=== PATIENT | male | born 1945 | race Caucasian/White ===

== ENCOUNTER 2017-06-18 00:42 | Inpatient (IN) | payer MEDICARE, OTHER ==
[2017-06-18] MEDS ORDERED: Ondansetron HCl/PF 4 MG/2 ML Vial IVP PRN (02:42)
[2017-06-18] MEDS ORDERED: HYDROcodone/Acetaminophen 5/325 mg Tablet PO PRN (02:42)
[2017-06-18] MEDS ORDERED: Acetaminophen 325 MG TAB PO PRN (02:42)
--- NOTE | 2017-06-18 02:52 | PDOC.EVN ---
Event Note - Event Note Event Note: h&p dictated [id number] 1. Dehydration 2. htn 3. h/o sarcoma plan: see orders
[2017-06-18 04:02] LABS: Anion Gap 15 mmol/L (10-20); BUN (Urea Nitrogen) 28 mg/dL (8.4-25.7); Calc. Creatinine Clearance 0 mL/min (70-130); Calcium 7.9 mg/dL (7.8-10.44); Carbon Dioxide 21 mmol/L (23-31); Chloride 100 mmol/L (98-107); Estimated GFR-MDRD 68
[2017-06-18 04:03] LABS: Band 4 % (5-11); Hematocrit 31.9 % (42.0-52.0); Neutrophil 9 % (42-75); Reactive Lymphocytes 1 % (0-10); Red Blood Cell (RBC) Count 3.49 mill/uL (4.70-6.10); White Blood Cell (WBC) Count 1.6 thou/uL (4.8-10.8)
[2017-06-18] MEDS: Sodium Chloride 0.9% 1,000 ML IV SCH ×2 (04:22→16:36)
[2017-06-18] MEDS ORDERED: Calcium Carbonate 500 MG ChewTAB PO PRN (06:31)
[2017-06-18] MEDS ORDERED: Bisacodyl 10 MG SUPP PR PRN (06:31)
[2017-06-18] MEDS ORDERED: Senokot 8.6 MG TAB PO PRN (06:31)
[2017-06-18 07:54] LABS: Magnesium 1.6 mg/dL (1.6-2.6); Phosphorus 3.3 mg/dL (2.3-4.7)
[2017-06-18] MEDS ORDERED: Famotidine/PF 20 mg/2ml Vial SLOW IVP SCH (09:00)
[2017-06-18] MEDS ORDERED: Heparin 5,000 UNITS/ML VIAL SC SCH (09:00)
[2017-06-18] MEDS: Famotidine 20 MG TAB PO SCH ×2 (09:25→20:31)
[2017-06-18] MEDS ORDERED: Cefepime 2 GM in Sodium Chloride 0.9% 100 ML IVPB SCH (09:30)
[2017-06-18] MEDS ORDERED: metroNIDAZOLE 500 MG in Premix Bag 1 BAG IVPB SCH (10:00)
--- NOTE | 2017-06-18 10:16 | HP ---
DATE OF ADMISSION: 06/18/2017 CHIEF COMPLAINT: Dehydration. HISTORY OF PRESENT ILLNESS: Patient is 72 years old male with past medical history of sarcomatoid malignancy, hypertension. Patient finished chemotherapy last week, and this was second round, now came to the hospital because of weakness. Since the chemotherapy, patient is not eating and drinking well. He has generalized weakness, some nausea, decreased p.o. intake. The patient was extremely weak today, so patient was brought to the ER. Patient denies any fever or chills. Complains of loss of energy, denies any trouble breathing, denies dizziness. Per family, patient did have some episodes of vomiting, vomit is black in color, some black stool also. PAST MEDICAL HISTORY: As per HPI. PAST SURGICAL HISTORY: Mass biopsy done. MEDICATIONS: Reviewed. FAMILY HISTORY: Denies any heart problems. SOCIAL HISTORY: Denies smoking, denies alcohol, denies any drugs. REVIEW OF SYSTEMS: Constitutional: Denies any fever, denies any chills. Eyes : Negative. Ears: Negative. Throat: Negative. Neck: Negative. Cardiovascular system: Negative. Gastrointestinal: Positive for loss of appetite. Positive for nausea. Musculoskeletal: Positive for generalized weakness. Cranial nerve system: Denies syncope. Psychiatric: Denies anxiety. Integument: Denies any rash. All other systems are reviewed and are negative. PHYSICAL EXAMINATION: CONSTITUTIONAL AND VITAL SIGNS: At the time of H and P performed, blood pressure is 130/70, afebrile, respiration rate 18, pulse ox 97% on room air. GENERAL: The patient appears tired. HEENT: Anterior nares patent. Nose normal. Ears normal. Teeth intact. Tongue is moist. NECK: Supple, no JVD. CARDIOVASCULAR SYSTEM: S1, S2 present. Regular rate and rhythm. No murmurs, no rubs, no gallops. RESPIRATORY SYSTEM: No wheezing, no rhonchi. Breath sounds present bilaterally. GASTROINTESTINAL: Abdomen is soft, nontender, no guarding, no organomegaly, no masses felt. PSYCHIATRIC: Mood is appropriate at this time. INTEGUMENTARY: No rashes seen. GENITOURINARY: No suprapubic tenderness. No inguinal tenderness. MUSCULOSKELETAL: No edema. CRANIAL NERVE SYSTEM: Awake, follows command. Strength intact, sensory intact. LABORATORY DATA: At the time of H and P performed, sodium 132, potassium 4.4, chloride 97, CO2 is 20, BUN of 30, creatinine of 1.43. White count 5.9, hemoglobin 12.4, platelet count is 125. ASSESSMENT AND PLAN: The patient is 72 years old male: 1. Dehydration, hypovolemia. Plan to admit patient to the hospital. We will monitor the patient closely. Start IV fluids, repeat BMP in a.m. 2. History of hypertension. Hold blood pressure medications. We will do p.r.n. hydralazine. 3. History of sarcoma. Plan to consult Hem/Onc to evaluate the patient. Case was discussed in detail with the patient. Patient is FULL CODE. MTDD
[2017-06-18 11:22] LABS: Bilirubin Moderate (Negative); Blood, Urine Large (Negative); Glucose, Urine (Dipstick) Negative (Negative); Ketone, Urine Trace mg/dL (Negative); Nitrite Positive (Negative); Protein, Urine (Dipstick) 30 mg/dL (Neg-Trace)
[2017-06-18 11:25] LABS: Bacteria/HPF None Seen HPF (None Seen); Hyaline Casts/LPF 4-6 HYALINE CAST LPF (0-3 Hyaline); Squamous Epithelial None Seen HPF (0-3); WBC/HPF 0-3 HPF (0-3)
[2017-06-18] MEDS: Cefepime 2 GM in Sodium Chloride 0.9% 100 ML IVPB SCH ×2 (11:31→20:23)
--- NOTE | 2017-06-18 12:00 | RAD ---
KUB AND UPRIGHT: HISTORY: Abdominal pain. FINDINGS: The bowel gas pattern is nonobstructed. No free air demonstrated. No renal calculi are seen. Ther e are marked arthritic changes of the spine. IMPRESSION: No acute changes. POS: [id number]
--- NOTE | 2017-06-18 12:25 | CON ---
DATE OF CONSULTATION: 06/18/2017 REASON FOR CONSULTATION: Stage 4 sarcoma. HISTORY OF PRESENT ILLNESS: Mr. Manriquez is a pleasant 72-year-old gentleman who was recently diagnosed with stage IV, high grade sarcomatoid malignancy. He originally presented in April with right flank pain and mass. Scans showed a large mass in his right flank, left upper quadrant and right lower quadrant. Path revealed sarcomatoid malignancy. He was offered chemoradiation, but he did not want to come daily for radiation. He also declined to go to a sarcoma specialist. He is undergoing treatment with Gemzar and Taxotere. He completed cycle 1 on 06/10/2017. Over the last few days, he has had increased weakness, poor appetite, and progressive difficulty urinating. He presented to [facility] for evaluation. He was found with an elevated creatinine, felt to be dehydrated and was sent to this facility for further treatment. He has been started on IV fluids. Labs showed a BUN of 30 and a creatinine of 1.43. He did have a total bilirubin of 4.2 with an AST of 62, an abdominal x-ray has been ordered to rule out biliary obstruction as he does have a mass in that area. Overnight, his creatinine has improved; however, he has been unable to void over the past several hours. A Hayward catheter was placed with 875 mg of dark urine initial output. He denies any chest pain or shortness of breath. No nausea, vomiting, no diarrhea or constipation. PAST MEDICAL HISTORY: 1. 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 2. Hypertension. 3. [place] with exposure to Agent [place]. PAST SURGICAL HISTORY: Appendectomy. ALLERGIES: No known drug allergies. HOME MEDICATIONS: 1. Lisinopril/hydrochlorothiazide daily. 2. Verapamil 240 mg daily. 3. Aspirin 81 mg daily. FAMILY HISTORY: Noncontributory. SOCIAL HISTORY: He is , has 2 children, [place] alone [place] the [place] outside of [place], a former smoker, social drinker. No illicit drug use. REVIEW OF SYSTEMS: CONSTITUTIONAL: No fever, chills, night sweats, recent weight loss or gain. EYES: No blurred or double vision. ENT: No pain, hoarseness, sore throat, or dysphagia. CARDIOVASCULAR: No chest pain, palpitations or syncope. RESPIRATORY: No shortness breath, dyspnea on exertion or cough. GASTROINTESTINAL: Positive for occasional nausea. Poor appetite and right upper quadrant abdominal pain. GENITOURINARY: Positive for dysuria. MUSCULOSKELETAL: Positive for back pain. SKIN: No rash or pruritus. HEMATOLOGIC: No bleeding, bruising or clotting. NEUROLOGIC: Positive for weakness, no headache, numbness, tingling or seizure activity. PSYCHIATRIC: No anxiety or depression. PHYSICAL EXAMINATION: VITAL SIGNS: Temperature is 97.9, pulse is 87, respiratory rate 18, BP is 140/ 79. He is 92% on room air. GENERAL: Well-developed, well-nourished male in no acute distress. HEENT: Normocephalic, atraumatic. Pupils equal and reactive to light. NECK: Supple. CARDIOVASCULAR: Regular rate and rhythm. LUNGS: Clear. ABDOMEN: Distended. He has mild tenderness to palpation in the right upper quadrant. Bowel sounds are positive. EXTREMITIES: No clubbing, cyanosis or edema. SKIN: He has redness to his face from sun exposed areas, likely from Taxotere. HEMATOLOGIC: No petechia or purpura. NEUROLOGICAL: Nonfocal. PSYCHIATRIC: The patient is alert and oriented and appropriate. PERTINENT LABORATORY AND X-RAYS: Current WBCs are 1.6, hemoglobin 10.7, hematocrit 31.9, platelet count 85,000. He has got 9% neutrophils, 4% bands, 61 % lymphocytes, 24% monocytes. Sodium is 132, potassium 4.1, chloride 100, CO2 is 21, BUN is 28, creatinine 1.07, calcium 7.9, phosphorus 2.3, magnesium 1.6, total bilirubin is 4.2, AST 62, ALT 54, alkaline phosphatase is 110. Serum total protein is 5.5, albumin 2.8, globulin 2.7. Urine showed large amount of blood and bilirubin, no bacteria. Chest x-ray showed no acute process. IMPRESSION: 1. Stage IV sarcoma status post chemotherapy. 2. Dehydration secondary to #1. 3. Hyperbilirubinemia worrisome for obstruction. DISCUSSION: The patient has had an abdominal ultrasound, results are currently pending. He has had a Hayward placed. Etiology of his dysuria is unknown. He is slowly reaching his edwige so I expect his white count to continue to drop over the next day or two and then should improve. I would continue IV fluids. The patient is on cefepime and Flagyl, continue for the next 48 hours. Thank you for the consult. We will follow him closely. MATILDA
[2017-06-18] MEDS: metroNIDAZOLE 500 MG in Premix Bag 1 BAG IVPB SCH ×2 (12:37→21:10)
--- NOTE | 2017-06-18 13:17 | ULT ---
RIGHT UPPER QUADRANT ULTRASOUND: HISTORY: Abnormal LFTs. FINDINGS: The liver demonstrates homogeneous echotexture without focal mass or intrahepatic ductal dilatation. There is a shadowing gallstone in the neck of the gallbladder without gallbladder wall thickening or pericholecystic fluid. The common duct measures 4 mm in diameter. The pancreas is not well visu alized. No free fluid is seen in the Morison's pouch. There is a 2.2 cm cyst in the right kidney. No right-sided hydronephrosis is seen. There is a solid mass adjacent to the superomedial aspect of the right kidney which is better visual ized and evaluated on the CT scan of 05/11/17. IMPRESSION: 1. Cholelithiasis. 2. Right renal cyst. 3. Solid mass in the right upper quadrant. Please see CT of 05/11/17. POS: LINDA
[2017-06-18] MEDS: traMADol HCl 50 MG TAB PO PRN (16:58)
[2017-06-19] MEDS: Cefepime 2 GM in Sodium Chloride 0.9% 100 ML IVPB SCH ×3 (03:42→20:10)
[2017-06-19] MEDS: Sodium Chloride 0.9% 1,000 ML IV SCH ×3 (03:42→19:01)
[2017-06-19 06:05] LABS: Prothrombin Time 17.7 SEC (12.0-14.7)
[2017-06-19 06:23] LABS: ALT (SGPT) 39 U/L (8-55); AST (SGOT) 36 U/L (5-34); Alkaline Phosphatase 94 U/L (40-150); Bilirubin, Direct 1.3 mg/dL (0.1-0.3); Bilirubin, Total 1.7 mg/dL (0.2-1.2); Protein, Total 5.2 g/dL (5.8-8.1)
[2017-06-19 06:42] LABS: Anion Gap 13 mmol/L (10-20); BUN (Urea Nitrogen) 22 mg/dL (8.4-25.7); BUN/Creatinine Ratio 32.84; Calc. Creatinine Clearance 152 mL/min (70-130); Calcium 7.5 mg/dL (7.8-10.44); Carbon Dioxide 20 mmol/L (23-31); Chloride 104 mmol/L (98-107); Estimated GFR-MDRD Greater than 90; Phosphorus 1.6 mg/dL (2.3-4.7)
[2017-06-19 06:44] LABS: Band 7 % (5-11); Crenated RBC SLIGHT = 1-5 cells (100X) (None Seen); Mean Platelet Volume 10.6 fL (7.4-10.4); Myelocyte 1 % (0-0); Neutrophil 39 % (42-75); Red Blood Cell (RBC) Count 3.67 mill/uL (4.70-6.10); White Blood Cell (WBC) Count 5.3 thou/uL (4.8-10.8)
[2017-06-19] MEDS: metroNIDAZOLE 500 MG in Premix Bag 1 BAG IVPB SCH ×3 (07:18→21:25)
--- NOTE | 2017-06-19 08:45 | PRG ---
DATE OF SERVICE: 06/19/2017 SUMMARY: A 72-year-old male with stage IV sarcoma, currently on chemotherapy and hypertension who presented to the hospital with generalized weakness. He lost his appetite and had some abdominal discomfort. His workup in the emergency room showed elevated LFTs with acute kidney injury. Repeat labs in the morning showed neutropenia with WBC of 1.6, neutrophils of 9% with 4% bandemia. SUBJECTIVE: The patient had some diarrhea earlier today. He had urinary retention for which a Hayward catheter has been placed. Abdominal discomfort has improved after Hayward catheter. Overall, he feels better. He denies any chest pain, shortness of breath, palpitations, fever, chills or jaundice. REVIEW OF SYSTEMS: As discussed above. No new focal deficit, syncope or palpitations. CURRENT MEDICATIONS: The patient is currently on cefepime, Pepcid, IV NS 800 an hour, Flagyl with p.r.n. medications. PHYSICAL EXAMINATION: VITAL SIGNS: Temperature 98.1, respirations 20, pulse of 78, blood pressure 138 /66 with O2 saturation 98% on room air. Intake of 1680, output of 2175. Patient has indwelling Hayward catheter. GENERAL: A 72-year-old male in no apparent distress. Abdominal discomfort has improved. HEENT: Head atraumatic, normocephalic. Sclerae anicteric. Moist mucous membranes. No oral lesion. LUNGS: Clear to auscultation bilaterally. No wheezing, rales or rhonchi. HEART: S1, S2 present. Regular rate and rhythm. No rubs, gallops or murmurs appreciated. ABDOMEN: Soft, nontender, bowel sounds present, no rebound or guarding. No costovertebral angle tenderness. EXTREMITIES: No edema or calf tenderness. NEUROLOGIC: Grossly nonfocal, moves all 4 extremities. Power was 5/5 in all extremities. [id number] test was normal. Sensation to touch was normal bilaterally. PSYCHIATRIC: Alert, awake, oriented x3. LABORATORY DATA AND IMAGING: WBC is up to 5.3 from 1.6 with 39% neutrophils. INR of 1.4. Total bilirubin today is 1.7 from 4.2, AST has improved to 36 from 62, albumin 2.4, creatinine 0.67 with BUN 22. Urinalysis on admission showed 0- 3 wbc's with no bacteria. It showed hyaline cast, nitrite positive. Blood cultures and urine cultures are pending at this time. Abdominal ultrasound showed cholelithiasis with right renal cyst and a solid mass in the right upper quadrant. KUB by my review showed nonspecific bowel gas pattern. There was no free air. IMPRESSION: 1. Sepsis with acute organ dysfunction. 2. Neutropenia, probably secondary to chemotherapy/sepsis. 3. Acute kidney injury secondary to dehydration. 4. Abnormal liver function tests of unclear etiology. His abdominal ultrasound was consistent with cholelithiasis with common bile duct at 4 mm. 5. Urinary retention status post Hayward catheter placement. 6. Moderate protein calorie malnutrition. 7. Pancytopenia, probably secondary to chemotherapy. 8. Coagulopathy, probably secondary to nutritional deficiencies. 9. Hypertension. 10. Diarrhea, rule out infectious etiology. 11. Right renal cyst. 12. History of stage IV sarcoma, currently on chemotherapy. 13. Dehydration on admission, improved. 14. History of lung mass followed by Pulmonary. 15. History of alcohol abuse. 16. Hypophosphatemia. Plan of care was discussed with the patient. He stated understanding. PLAN: The patient will continue IV cefepime and Flagyl with IV fluids. Stool workup has been pending. We will continue Hayward catheter today. Oncology team is following. We will repeat labs in a.m. We will encourage activity. Physical therapy has been consulted. We will resume home dose of aspirin. If platelet counts improve, we will consider starting Lovenox tomorrow. We will replace phosphorus. His phosphorus today was 1.6. Try Flomax tonight. MTDD
[2017-06-19] MEDS: Multivit, Therapeutic 1 TAB PO SCH (09:29)
[2017-06-19] MEDS: Folic Acid 1 MG TAB PO SCH (09:29)
[2017-06-19] MEDS: Cyanocobalamin (Vitamin B-12) 1,000 MCG TAB PO SCH (09:29)
[2017-06-19] MEDS: K-Phos Neutral 250 MG TAB PO SCH ×4 (09:29→21:23)
[2017-06-19] MEDS: Famotidine 20 MG TAB PO SCH ×2 (09:29→21:25)
[2017-06-19] MEDS: traMADol HCl 50 MG TAB PO PRN (09:38)
--- NOTE | 2017-06-19 11:26 | PDOC.EVN ---
Event Note - Event Note Event Note: Stool w/u positive for Cryptosporidium. Will add Alinia/consult ID.
[2017-06-19] MEDS ORDERED: Cepastat Lozenges 1 LOZ PO PRN (17:04)
[2017-06-19] MEDS ORDERED: Chloraseptic Spray 180 ml Bottle PO PRN (17:04)
[2017-06-19] MEDS: Calcium Carbonate + Vit D 1 TAB PO SCH (17:49)
[2017-06-19] MEDS ORDERED: Tamsulosin HCl 0.4 MG CAP PO SCH (21:00)
[2017-06-20] MEDS: Cefepime 2 GM in Sodium Chloride 0.9% 100 ML IVPB SCH ×2 (04:00→12:16)
[2017-06-20 04:33] LABS: ALT (SGPT) 31 U/L (8-55); AST (SGOT) 32 U/L (5-34); Alkaline Phosphatase 93 U/L (40-150); Anion Gap 11 mmol/L (10-20); BUN (Urea Nitrogen) 18 mg/dL (8.4-25.7); BUN/Creatinine Ratio 32.14; Band 15 % (5-11); Bilirubin, Direct 0.7 mg/dL (0.1-0.3); Bilirubin, Total 1.1 mg/dL (0.2-1.2); Calc. Creatinine Clearance 182 mL/min (70-130); Carbon Dioxide 22 mmol/L (23-31); Chloride 106 mmol/L (98-107); Estimated GFR-MDRD Greater than 90; Hematocrit 33.2 % (42.0-52.0); Magnesium 1.9 mg/dL (1.6-2.6); Metamyelocyte 3 % (0-0); Myelocyte 8 % (0-0); Neutrophil 52 % (42-75); Nucleated RBC 2 % (0); Protein, Total 4.8 g/dL (5.8-8.1); Red Blood Cell (RBC) Count 3.61 mill/uL (4.70-6.10); Toxic Granulation SLIGHT; White Blood Cell (WBC) Count 8.2 thou/uL (4.8-10.8)
[2017-06-20 04:38] LABS: Phosphorus 1.8 mg/dL (2.3-4.7)
[2017-06-20] MEDS: metroNIDAZOLE 500 MG in Premix Bag 1 BAG IVPB SCH (05:11)
[2017-06-20] MEDS: Sodium Chloride 0.9% 1,000 ML IV SCH ×3 (06:24→15:38)
[2017-06-20] MEDS ORDERED: Nitroglycerin 0.4 MG TAB (25 Tab Bottle) PO PRN (07:37)
[2017-06-20 08:27] LABS: Troponin I Less than 0.010 ng/mL (< 0.028)
[2017-06-20] MEDS: K-Phos Neutral 250 MG TAB PO SCH ×4 (08:56→21:00)
[2017-06-20] MEDS: Calcium Carbonate + Vit D 1 TAB PO SCH ×2 (08:56→17:49)
[2017-06-20] MEDS: Cyanocobalamin (Vitamin B-12) 1,000 MCG TAB PO SCH (08:57)
[2017-06-20] MEDS: Famotidine 20 MG TAB PO SCH ×2 (08:57→21:01)
[2017-06-20] MEDS: Folic Acid 1 MG TAB PO SCH (08:58)
[2017-06-20] MEDS: Multivit, Therapeutic 1 TAB PO SCH (08:58)
[2017-06-20] MEDS: Aspirin 81 mg Enteric Coated Tablet PO SCH (08:59)
[2017-06-20] MEDS ORDERED: Aspirin 325 MG TAB PO SCH (09:00)
[2017-06-20] MEDS ORDERED: Digoxin 0.5 MG/2 ML AMP ONE ×2 (10:54→16:56)
[2017-06-20] MEDS: Digoxin 0.5 MG/2 ML AMP SLOW IVP SCH ×2 (10:59→17:03)
[2017-06-20 11:04] LABS: Troponin I Less than 0.010 ng/mL (< 0.028)
--- NOTE | 2017-06-20 12:48 | PDOC.PN ---
- Subjective Encounter Start Date: 06/20/17 Encounter Start Time: 12:46 Patient seen and examined. Transferred to [facility] due to Afib with RVR earlier today. No overnight events - Objective MAR Reviewed: Yes Vital Signs & Weight: Vital Signs (12 hours) Temp Pulse Resp BP BP BP Pulse Ox 06/20/17 12:32 98 F 48 L 18 162/73 H 06/20/17 11:03 131 H 06/20/17 10:59 131 H 06/20/17 08:57 129 H 132/66 06/20/17 08:20 96.4 F L 114 H 20 100/61 96 06/20/17 07:58 96.4 F L 155 H 20 114/65 94 L 06/20/17 04:00 98.0 F 76 18 113/56 L 96 Weight Admit Weight 231 lb 0.711 oz Weight 231 lb 0.711 oz I&O: 06/19/17 06/20/17 06/21/17 06:59 06:59 06:59 Intake Total 1680 3320 Output Total 2175 1350 Balance -495 1970 Result Diagrams: 06/20/17 03:22 06/20/17 03:22 EKG Reviewed by me: Yes (Afib/RVR) Phys Exam - Physical Examination Constitutional: NAD Respiratory: no wheezing, no rales, no rhonchi, clear to auscultation bilateral Cardiovascular: no rub, irregular no heaves/pulsations Gastrointestinal: soft, no distention, positive bowel sounds mild gen tenderness Musculoskeletal: no edema Neurological: non-focal, normal sensation, moves all 4 limbs Psychiatric: normal affect, A&O x 3 Dx/Plan - Plan cont current plan of care, DVT proph w/SCDs IMPRESSION: 1. Sepsis with acute organ dysfunction due to Cryptosporidial gastroenteritis 2. Atrial fibrillation with RVR 3. Acute kidney injury secondary to dehydration. improving 4. Abnormal liver function tests of unclear etiology. improving 5. Urinary retention status post Hayward catheter placement. 6. Moderate protein calorie malnutrition. 7. Pancytopenia, probably secondary to chemotherapy. 8. Coagulopathy, probably secondary to nutritional deficiencies. 9. Hypertension. 10. Diarrhea, rule out infectious etiology. 11. Right renal cyst. 12. History of stage IV sarcoma, currently on chemotherapy. 13. Dehydration on admission, improving 14. History of lung mass followed by Pulmonary. 15. History of alcohol abuse. 16. Hypophosphatemia. 17 Cholelithiasis 18. Neutropenia improving PLAN: * Cardizem bolus given. * Cont Digoxin loading * Cardio consult * Echo * Cardizem drip * DC Flagyl * Cont Cefepime and Alinia * AM labs * Tele monitoring * Replace electrolytes * Await ID input * Add low dose ASA * Start Lovenox at low dose since platelets are normal Review of Systems - Review of Systems Constitutional: negative: Fever, Chills, Sweats, Weakness, Malaise, Other Respiratory: negative: Cough, Dry, Shortness of Breath, Hemoptysis, SOB with Excertion, Pleuritic Pain, Sputum, Wheezing Gastrointestinal: Nausea, Diarrhea. negative: Vomiting, Abdominal Pain, Constipation, Melena, Hematochezia, Other - Medications/Allergies Allergies/Adverse Reactions: Allergies Allergy/AdvReac Type Severity Reaction Status Date / Time No Known Drug Allergies Allergy Verified 05/11/17 21:29 Medications: Current Medications Aspirin (Ecotrin) 81 mg PO DAILY [facility] Last Admin: 06/20/17 08:59 Dose: 81 mg Bisacodyl (Dulcolax) 10 mg CO Q24H PRN PRN Reason: Constipation Calcium Carbonate (Tums) 1,000 mg PO Q4H PRN PRN Reason: Heartburn or Indigestion Calcium/Vitamin D (Caltrate 600 + Vit D) 1 tab PO BID-[facility] Last Admin: 06/20/17 08:56 Dose: Not Given Digoxin (Lanoxin) 0.25 mg SLOW IVP Q6H [facility] Stop: 06/20/17 22:01 Last Admin: 06/20/17 10:59 Dose: 0.25 mg Digoxin (Lanoxin) 0.125 mg PO DAILY [facility] Diltiazem HCl (Cardizem) 30 mg PO Q6H PRN PRN Reason: HR >120 sustained Diltiazem HCl (Cardizem Cd) 120 mg PO DAILY [facility] Last Admin: 06/20/17 08:57 Dose: 120 mg Famotidine (Pepcid) 20 mg PO BID [facility] Last Admin: 06/20/17 08:57 Dose: 20 mg Folic Acid (Folvite) 1 mg PO DAILY [facility] Last Admin: 06/20/17 08:58 Dose: Not Given Cefepime HCl 2 gm/ Sodium (Chloride) 100 mls @ 200 mls/hr IVPB Q8H [facility] Last Admin: 06/20/17 12:16 Dose: 100 mls Diltiazem HCl 125 mg/ Sodium (Chloride) 125 mls @ 5 mls/hr IVPB INF DAINA; 5 MG/ HR PRN Reason: Protocol Last Admin: 06/20/17 09:22 Dose: 125 mls Sodium Chloride (Normal Saline 0.9%) 1,000 mls @ 125 mls/hr IV .Q8H [facility] Last Admin: 06/20/17 08:57 Dose: Not Given Miscellaneous Medication (Pharmacy To Dose) 1 each IVPB ASDIR DAINA Multivitamins (Theragran) 1 tab PO DAILY [facility] Last Admin: 06/20/17 08:58 Dose: Not Given Nitazoxanide (Alinia) 500 mg PO BID [facility] Last Admin: 06/20/17 11:02 Dose: 500 mg Nitroglycerin (Nitrostat) 0.4 mg PO Q5MIN PRN PRN Reason: Chest Pain Ondansetron HCl (Zofran) 4 mg IVP Q6H PRN PRN Reason: Nausea/Vomiting Phenol (Chloraseptic [place] 180 Ml Bot) 0 ml PO BIDPRN PRN PRN Reason: Sore Throat Last Admin: 06/19/17 19:02 Dose: 1 spr Phosphorus (Kphos Neutral) 500 mg PO QID-WM [facility] Last Admin: 06/20/17 12:15 Dose: 500 mg Senna (Senokot) 2 tab PO HSPRN PRN PRN Reason: Constipation Sodium Chloride (Flush - Normal Saline) 10 ml IVF Q12HR [facility] Last Admin: 06/20/17 11:02 Dose: 10 ml Sodium Chloride (Flush - Normal Saline) 10 ml IVF PRN PRN PRN Reason: Saline Flush Tamsulosin HCl (Flomax) 0.4 mg PO HS [facility] Last Admin: 06/19/17 21:25 Dose: 0.4 mg Thiamine HCl (Thiamine) 100 mg PO DAILY [facility] Last Admin: 06/20/17 08:58 Dose: Not Given Throat Lozenges (Cepastat Lozenges) 1 navjot PO Q2H PRN PRN Reason: Sore Throat Last Admin: 06/19/17 19:02 Dose: 1 navjot Tramadol HCl (Ultram) 50 mg PO Q6H PRN PRN Reason: Moderate Pain (4-6) Last Admin: 06/19/17 09:38 Dose: 50 mg
--- NOTE | 2017-06-20 19:51 | CON ---
DATE OF CONSULTATION: 06/20/2017 REASON FOR CONSULTATION: Diarrhea. HISTORY OF PRESENT ILLNESS: A 72-year-old patient who has recently been diagnosed with metastatic sarcomatoid malignancy and is currently undergoing chemotherapy and has been admitted with nausea, vomiting and profuse diarrhea, without fever or chills. Initial evaluation demonstrated a BP of 130/70, normal temperature, respiratory rate of 18 and pulse ox of 97%. He appeared chronically ill. Pertinent findings in the physical exam, normal heart and lung examination. Abdomen was diffusely tender. neurologic examination was not remarkable. Initial labs with white cell count of 1.6, total neutrophil count of about 160 monocytosis. INR was 1.4, creatinine 0.67, sodium 133, potassium 3.9 and CO2 of 20. Urinalysis with 0-3 wbc's. Microbiology data with negative two sets of blood cultures and urine culture and stool workup positive only for cryptosporidium in the parasite screen as well as positive lactoferrin test. The patient has been given Alinia, still quite profuse diarrhea since this morning, but vomiting has subsided. No headaches, visual symptoms, sore throat, odynophagia or dysphagia, no cough or sputum production or chest pain, no genitourinary symptoms, no bleeding, no joint symptoms, no neurological symptoms. PAST MEDICAL HISTORY: Metastatic malignancy with the pathology consistent with sarcomatoid malignancy of uncertain line of differentiation. Also, history of hypertension. PAST SURGICAL HISTORY: Otherwise, negative. SOCIAL HISTORY: Never a smoker. Drinks 5-6 beers a day[place] from [place]. Social history is otherwise unremarkable. CURRENT MEDICATIONS: Dulcolax, Tums, cefepime, Lanoxin, Cardizem, Lovenox, Folvite and Alinia. PHYSICAL EXAMINATION: VITAL SIGNS: With a T-max of 98.6, blood pressure 160/73, pulse 48, respirations 18 and O2 sat 96% on room air. SKIN: No areas of skin breakdown. Peripheral IV access. No Hayward catheter. No lymphadenopathy. HEENT: Ocular movements are conjugate. Sclerae are white. Oral cavity is moist, still with few teeth in place with extensive decay and gum disease. NECK: Supple. No jugular distention. LUNGS: With symmetric air entry without crackles or wheezing. HEART: S1 and S2, irregular rate. ABDOMEN: Soft with mild tenderness, diffusely distributed, no distention. Bowel sounds are increased. Suprapubic area without any evidence of bladder distention. Osteoarthrosis, mild to moderate. No edema. EXTREMITIES: Pulses are 1+ in dorsalis pedis. Moves all extremities equally. Plantar responses are flexor. No clonus. Cognitive function appears to be intact. LATEST LABORATORY DATA: White cell count up to 8.2. Total neutrophil count is well above 4000 and creatinine is 0.56. Liver profile with a bilirubin down from 1.3 to 0.7. IMAGING STUDIES: Include abdomen ultrasound with cholelithiasis, but no evidence of inflammatory changes and a solid mass in the right upper quadrant. He had an abdomen x-ray from admission, no acute changes. Brain MRI from last admission with no evidence of metastatic disease and chest, abdomen and pelvis with mass in the left upper lobe, mass in the right hilum and nodule in the right upper lobe and the soft tissue masses in the upper abdomen, superior right kidney, retroperitoneal area both right and left side in the flank region , iliac region. ASSESSMENT: 1. Metastatic sarcomatoid malignancy, on chemotherapy. 2. Well water associated Cryptosporidiosis, quite severe presentation. 3. Neutropenia, which has resolved. DISCUSSION: At this point, I recommend discontinuation of cefepime, continue Alinia until there is resolution of diarrhea. No evidence of extraintestinal dissemination of the cryptosporidiosis at this point in time. The patient will need to filter his well water and have it rechecked and reassess that the filter he is using for the treatment. Should remain on contact precautions during the hospital stay. MTDD
--- NOTE | 2017-06-20 20:06 | CON ---
DATE OF CONSULTATION: 06/20/2017 REFERRING PHYSICIAN: Henrique Bruce M.D. REASON FOR CONSULTATION: New onset atrial fibrillation with rapid ventricular response. HISTORY OF PRESENT ILLNESS: Mr. 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 He is on chemotherapy and has had some abdominal discomfort, [place], and diarrhea recently. He was admitted on 06/18/2017 complaining of loss of energy, nausea and vomiting. He has had some resultant renal insufficiency and liver enzyme elevations since his chem otherapeutic completion on 06/10/2017. He was transferred to the telemetry unit from [facility] today due to new onset atrial fibrillation with rapid ventricular response. He has been treated with Cardizem and digoxin with good rate control thus far. PAST MEDICAL HISTORY: 1. 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 There is a large right flank mass. 2. Hypertension. 3. Agent [place] exposure in [place]. PAST SURGICAL HISTORY: Appendectomy. ALLERGIES: No known drug allergies. SOCIAL HISTORY: He is . He has 2 children. He is a former smoker. Does not use illicit dr ugs or alcohol to excess. FAMILY HISTORY: Negative with respect to premature atherosclerosis. CURRENT MEDICATIONS: 1. Lisinopril/hydrochlorothiazide daily. 2. Verapamil 240 mg daily. 3. Aspirin 81 mg daily. REVIEW OF SYSTEMS: As per the history of present illness. Remainder of 12-system review is negativ e. PHYSICAL EXAMINATION: VITAL SIGNS: Blood pressure 162/73, pulse 98 and irregularly irregular, respiratory rate 18 and non labored, temperature 98.0, oxygen saturations 96% on room air. GENERAL: This is a well-developed, well-nourished 72-year-old gentleman in no acute distr ess. He is alert and oriented x4. Answers questions appropriately. HEENT: Head is atraumatic, normocephalic. Pupils are equally round and reactive. Sclerae and conj unctivae are clear. There are no oral lesions. NECK: Supple, no JVD, thyromegaly, carotid bruits. CHEST: Symmetrical inspiration and expiration. HEART: Irregularly irregular with no murmur, S3 or S4. PMI is nondisplaced. Not enlarged. LUNGS: Clear to auscultation in all graham. No adventitious sounds appreciated. ABDOMEN: Soft, nontender, nondistended, without organomegaly. Bowel sounds are present in all 4 qu adrants. No flank bruits auscultated. EXTREMITIES: 2+ pulses noted bilaterally in the upper and lower extremities. Strength 5/5 bilatera lly. No clubbing, cyanosis or edema. NEUROLOGIC: Grossly intact without focal motor deficits appreciated. DATABASE: EKG reveals rapid atrial fibrillation, nonspecific ST changes. LABORATORY DATA: CBC reveals white count of 8, hemoglobin and hematocrit of 10 and 33, platelet cou nt 174,000. Differential white blood cells 15% bands, red cell indices normocytic. Coagulation sadie dies: PT is 17.7, INR 1.4. Chemistries reveal normal electrolytes, BUN and creatinine of 18 and 0. 5. GFR is estimated greater than 90. LFTs within normal limits today. Troponins are normal. ASSESSMENT: 1. New onset atrial fibrillation with rapid ventricular response, now rate controlled on Cardizem. 2. Hypertension, controlled. 3. Stage IV sarcoma. 4. Immunosuppression secondary to chemotherapy. RECOMMENDATIONS: From a cardiac standpoint, he is stable and asymptomatic with controlled ventricul ar rates. Would recommend continued calcium channel charlie therapy with his verapamil and weaning off his Cardizem and adding digoxin orally. We will hold off currently on anticoagulation due to hi s chemotherapy and elevation of his liver function tests and may consider switching to a more specif ic antiarrhythmic drug like Multaq for rhythm control if he does not convert on his own within the n ext 24-48 hours. We will follow along with you and make further recommendations as appropriate. We appreciate the opportunity to participate.
[2017-06-20] MEDS ORDERED: Enoxaparin Sodium 30 MG/0.3 ML SYRINGE SC SCH (21:00)
[2017-06-20] MEDS: Tamsulosin HCl 0.4 MG CAP PO SCH (21:01)
[2017-06-21] MEDS: Sodium Chloride 0.9% 1,000 ML IV SCH ×4 (00:36→20:54)
[2017-06-21 06:26] LABS: Band 10 % (5-11); Hematocrit 34.7 % (42.0-52.0); Mean Platelet Volume 9.7 fL (7.4-10.4); Metamyelocyte 5 % (0-0); Myelocyte 8 % (0-0); Neutrophil 53 % (42-75); Nucleated RBC 2 % (0); Red Blood Cell (RBC) Count 3.78 mill/uL (4.70-6.10); White Blood Cell (WBC) Count 17.8 thou/uL (4.8-10.8)
[2017-06-21 06:37] LABS: ALT (SGPT) 30 U/L (8-55); AST (SGOT) 44 U/L (5-34); Alkaline Phosphatase 117 U/L (40-150); Anion Gap 11 mmol/L (10-20); BUN (Urea Nitrogen) 14 mg/dL (8.4-25.7); BUN/Creatinine Ratio 26.92; Bilirubin, Direct 0.5 mg/dL (0.1-0.3); Bilirubin, Total 0.9 mg/dL (0.2-1.2); Calc. Creatinine Clearance 198 mL/min (70-130); Calcium 6.8 mg/dL (7.8-10.44); Carbon Dioxide 22 mmol/L (23-31); Chloride 107 mmol/L (98-107); Estimated GFR-MDRD Greater than 90; Magnesium 1.8 mg/dL (1.6-2.6); Protein, Total 4.9 g/dL (5.8-8.1)
[2017-06-21 06:41] LABS: Phosphorus 1.7 mg/dL (2.3-4.7)
[2017-06-21] MEDS ORDERED: Potassium Phosphate 12 MMOL, Admixture Fee 1 EACH in Sodium Chloride 0.9% 100 ML IVPB SCH (08:45)
[2017-06-21] MEDS: Folic Acid 1 MG TAB PO SCH (09:24)
[2017-06-21] MEDS: Aspirin 81 mg Enteric Coated Tablet PO SCH (09:24)
[2017-06-21] MEDS: Famotidine 20 MG TAB PO SCH ×2 (09:24→20:53)
[2017-06-21] MEDS: Multivit, Therapeutic 1 TAB PO SCH (09:25)
[2017-06-21] MEDS: Digoxin 0.125 MG TAB PO SCH (09:25)
[2017-06-21] MEDS: Calcium Carbonate + Vit D 1 TAB PO SCH ×2 (09:25→17:57)
[2017-06-21] MEDS: K-Phos Neutral 250 MG TAB PO SCH ×4 (09:26→20:54)
[2017-06-21] MEDS ORDERED: Apixaban 5 MG TAB PO SCH (11:15)
--- NOTE | 2017-06-21 18:38 | PDOC.PN ---
- Subjective Encounter Start Date: 06/21/17 Encounter Start Time: 10:00 Patient seen and examined. No new complaints. No overnight events. Feels somewhat better. Diarrhea improving. - Objective MAR Reviewed: Yes Vital Signs & Weight: Vital Signs (12 hours) Temp Pulse Pulse Resp BP BP BP 06/21/17 14:35 86 136/74 06/21/17 12:00 97.7 F 95 24 H 119/69 06/21/17 09:27 85 145/71 H 06/21/17 09:25 85 06/21/17 08:00 98.3 F 91 22 H 108/58 L Pulse Ox 06/21/17 14:35 06/21/17 12:00 97 06/21/17 09:27 06/21/17 09:25 06/21/17 08:00 96 Weight Admit Weight 231 lb 0.711 oz Weight 233 lb 8 oz I&O: 06/20/17 06/21/17 06/22/17 06:59 06:59 06:59 Intake Total 3320 3716.8 Output Total 1350 1150 Balance 1970 2566.8 Result Diagrams: 06/21/17 05:19 06/21/17 05:19 EKG Reviewed by me: Yes (Tele Afib) Phys Exam - Physical Examination Constitutional: NAD Respiratory: no wheezing, no rhonchi Cardiovascular: no rub, irregular Gastrointestinal: soft, non-tender, positive bowel sounds Musculoskeletal: no edema Neurological: moves all 4 limbs Dx/Plan - Plan IMPRESSION: 1. Sepsis with acute organ dysfunction due to Cryptosporidial gastroenteritis - on Alinia 2. Atrial fibrillation with RVR - Cardiology following. Echo - normal EF 3. Acute kidney injury secondary to dehydration. improving 4. Abnormal liver function tests of unclear etiology. improving 5. Urinary retention status post Hayward catheter placement. on Flomax 6. Moderate protein calorie malnutrition. 7. Pancytopenia, probably secondary to chemotherapy. 8. Coagulopathy, probably secondary to nutritional deficiencies. 9. Hypertension. 10. Diarrhea, rule out infectious etiology. 11. Right renal cyst. 12. History of stage IV sarcoma, currently on chemotherapy. 13. Dehydration on admission, improving 14. History of lung mass followed by Pulmonary. 15. History of alcohol abuse. 16. Hypophosphatemia/ Hypokalemia 17 Cholelithiasis - probably asymptomatic 18. Neutropenia improving PLAN: * DC Hayward in AM * Cont Digoxin * Anticoagulation started * Cardio following * Echo reviewed * Cont Alinia * AM labs * Tele monitoring * Replace electrolytes * Await ID input * DC ASA * DC Lovenox * Oncology following Review of Systems - Review of Systems Constitutional: negative: Fever, Chills, Sweats, Weakness, Malaise, Other Respiratory: negative: Cough, Dry, Shortness of Breath, Hemoptysis, SOB with Excertion, Pleuritic Pain, Sputum, Wheezing Cardiovascular: negative: Chest Pain, Palpitations, Orthopnea, Paroxysmal Noc. Dyspnea, Edema, Light Headedness, Other - Medications/Allergies Allergies/Adverse Reactions: Allergies Allergy/AdvReac Type Severity Reaction Status Date / Time No Known Drug Allergies Allergy Verified 05/11/17 21:29 Medications: Current Medications Apixaban (Eliquis) 5 mg PO BID [facility] Bisacodyl (Dulcolax) 10 mg [place] Q24H PRN PRN Reason: Constipation Calcium Carbonate (Tums) 1,000 mg PO Q4H PRN PRN Reason: Heartburn or Indigestion Calcium/Vitamin D (Caltrate 600 + Vit D) 1 tab PO BID-[facility] Last Admin: 06/21/17 17:57 Dose: 1 tab Digoxin (Lanoxin) 0.125 mg PO DAILY [facility] Last Admin: 06/21/17 09:25 Dose: 0.125 mg Diltiazem HCl (Cardizem) 30 mg PO Q6H PRN PRN Reason: HR >120 sustained Famotidine (Pepcid) 20 mg PO BID [facility] Last Admin: 06/21/17 09:24 Dose: 20 mg Folic Acid (Folvite) 1 mg PO DAILY [facility] Last Admin: 06/21/17 09:24 Dose: 1 mg Sodium Chloride (Normal Saline 0.9%) 1,000 mls @ 70 mls/hr IV .[id number] [facility] Miscellaneous Medication (Pharmacy To Dose) 1 each IVPB ASDIR [facility] Multivitamins (Theragran) 1 tab PO DAILY [facility] Last Admin: 06/21/17 09:25 Dose: 1 tab Nitazoxanide (Alinia) 500 mg PO BID [facility] Last Admin: 06/21/17 09:24 Dose: 500 mg Nitroglycerin (Nitrostat) 0.4 mg PO Q5MIN PRN PRN Reason: Chest Pain Ondansetron HCl (Zofran) 4 mg IVP Q6H PRN PRN Reason: Nausea/Vomiting Phenol (Chloraseptic [place] 180 Ml Bot) 0 ml PO BIDPRN PRN PRN Reason: Sore Throat Last Admin: 06/19/17 19:02 Dose: 1 spr Phosphorus (Kphos Neutral) 500 mg PO QID-WM [facility] Last Admin: 06/21/17 17:57 Dose: 500 mg Sodium Chloride (Flush - Normal Saline) 10 ml IVF Q12HR [facility] Last Admin: 06/21/17 09:29 Dose: Not Given Sodium Chloride (Flush - Normal Saline) 10 ml IVF PRN PRN PRN Reason: Saline Flush Last Admin: 06/20/17 17:11 Dose: 10 ml Tamsulosin HCl (Flomax) 0.4 mg PO HS [facility] Last Admin: 06/20/17 21:01 Dose: 0.4 mg Thiamine HCl (Thiamine) 100 mg PO DAILY [facility] Last Admin: 06/21/17 09:25 Dose: 100 mg Throat Lozenges (Cepastat Lozenges) 1 navjot PO Q2H PRN PRN Reason: Sore Throat Last Admin: 06/19/17 19:02 Dose: 1 navjot Tramadol HCl (Ultram) 50 mg PO Q6H PRN PRN Reason: Moderate Pain (4-6) Last Admin: 06/19/17 09:38 Dose: 50 mg Verapamil HCl (Calan Sr) 360 mg PO 2100 [facility] Stop: 06/21/17 22:00 Verapamil HCl (Calan Sr) 360 mg PO DAILY [facility]
[2017-06-21] MEDS: Apixaban 5 MG TAB PO SCH (20:53)
[2017-06-21] MEDS: Tamsulosin HCl 0.4 MG CAP PO SCH (20:53)
[2017-06-22 08:18] LABS: ALT (SGPT) 31 U/L (8-55); AST (SGOT) 55 U/L (5-34); Alkaline Phosphatase 102 U/L (40-150); Anion Gap 11 mmol/L (10-20); BUN (Urea Nitrogen) 11 mg/dL (8.4-25.7); BUN/Creatinine Ratio 22.45; Bilirubin, Direct 0.4 mg/dL (0.1-0.3); Bilirubin, Total 0.7 mg/dL (0.2-1.2); Calc. Creatinine Clearance 218 mL/min (70-130); Calcium 6.4 mg/dL (7.8-10.44); Carbon Dioxide 22 mmol/L (23-31); Chloride 109 mmol/L (98-107); Estimated GFR-MDRD Greater than 90; Magnesium 1.7 mg/dL (1.6-2.6); Protein, Total 4.2 g/dL (5.8-8.1)
[2017-06-22 08:20] LABS: Hematocrit 33.7 % (42.0-52.0); Mean Platelet Volume 8.8 fL (7.4-10.4); Red Blood Cell (RBC) Count 3.68 mill/uL (4.70-6.10)
[2017-06-22 08:26] LABS: Phosphorus 1.8 mg/dL (2.3-4.7)
[2017-06-22 08:28] LABS: Band 14 % (5-11); Dohle Bodies SLIGHT; Metamyelocyte 10 % (0-0); Myelocyte 14 % (0-0); Neutrophil 42 % (42-75); Nucleated RBC 2 % (0); Polychromasia MODERATE = 3-4 cells (100X) (0-2/hpf); Reactive Lymphocytes 5 % (0-10); Toxic Granulation SLIGHT; Vacuoles MODERATE
[2017-06-22] MEDS: Digoxin 0.125 MG TAB PO SCH (09:26)
[2017-06-22] MEDS: Calcium Carbonate + Vit D 1 TAB PO SCH ×2 (09:26→17:00)
[2017-06-22] MEDS: K-Phos Neutral 250 MG TAB PO SCH ×4 (09:26→20:30)
[2017-06-22] MEDS: Apixaban 5 MG TAB PO SCH ×2 (09:26→20:30)
[2017-06-22] MEDS: Folic Acid 1 MG TAB PO SCH (09:27)
[2017-06-22] MEDS: Multivit, Therapeutic 1 TAB PO SCH (09:27)
[2017-06-22] MEDS ORDERED: Potassium Phosphate 15 MMOL, Admixture Fee 1 EACH in Sodium Chloride 0.9% 250 ML 250 ML IVPB SCH (09:30)
--- NOTE | 2017-06-22 10:52 | PDOC.CTH ---
Cardiology Progress Note - Subjective Rates now well controlled on current meds. Tolerating Eliquis without bleeding thus far. Denies CV symptoms. ROS otherwise negative. - Objective Vital Signs Temp Pulse Resp BP Pulse Ox 06/22/17 09:26 73 06/22/17 08:20 97.4 F L 73 20 128/63 97 06/22/17 03:45 97 06/22/17 03:24 97.7 F 82 18 107/55 L 97 Admit Weight 231 lb 0.711 oz Weight 241 lb 14.4 oz 06/21/17 06/22/17 06/23/17 06:59 06:59 06:59 Intake Total 3716.8 1240 Output Total 1150 750 Balance 2566.8 490 - Physical Examination General/Neuro: alert & oriented x3, NAD Neck: carotid US brisk, no JVD present Lungs: CTA, unlabored respirations Heart: PMI normal, other: (irregular) Abdomen: no HSM, NT/ND, soft Extremities: + edema B Other PE findings: Neuro: no focal motor defs - Telemetry Telemetry Rhythm: AF with CVR - Labs Result Diagrams: 06/22/17 07:47 06/22/17 07:47 Troponin/CKMB Troponin I Less than 0.010 ng/mL (< 0.028) 06/20/17 10:21 - Assessment/Plan 1. AF: rates now controlled. Plan for 4-6 weeks of rate control and anticoagulation. Will see in outpatient setting in 4 weeks. 2. Stage IV sarcoma: chemo/management per oncology.
[2017-06-22] MEDS: Sodium Chloride 0.9% 1,000 ML IV SCH (11:46)
[2017-06-22] MEDS: Famotidine 20 MG TAB PO SCH (12:24)
--- NOTE | 2017-06-22 18:16 | PDOC.PN ---
- Subjective Encounter Start Date: 06/22/17 Encounter Start Time: 10:30 Patient seen and examined. No new complaints. No overnight events. Feels slightly better. Loose stool. - Objective MAR Reviewed: Yes Vital Signs & Weight: Vital Signs (12 hours) Temp Pulse Pulse Pulse Resp BP BP 06/22/17 16:00 98.2 F 77 16 06/22/17 12:15 97.9 F 79 22 H 06/22/17 10:37 85 81 120/63 137/68 06/22/17 09:26 73 06/22/17 08:20 97.4 F L 73 20 06/22/17 07:55 128/63 BP Pulse Ox 06/22/17 16:00 124/59 L 96 06/22/17 12:15 117/64 97 06/22/17 10:37 06/22/17 09:26 06/22/17 08:20 128/63 97 06/22/17 07:55 Weight Admit Weight 231 lb 0.711 oz Weight 241 lb 14.4 oz I&O: 06/21/17 06/22/17 06/23/17 06:59 06:59 06:59 Intake Total 3716.8 1240 Output Total 1150 750 Balance 2566.8 490 Result Diagrams: 06/22/17 07:47 06/22/17 07:47 EKG Reviewed by me: Yes (Tele Afib) Phys Exam - Physical Examination Constitutional: NAD Respiratory: no wheezing, no rhonchi Cardiovascular: no rub, irregular Gastrointestinal: soft, non-tender, no distention, positive bowel sounds Musculoskeletal: no edema Neurological: moves all 4 limbs Dx/Plan - Plan IMPRESSION: 1. Sepsis with acute organ dysfunction due to Cryptosporidial gastroenteritis - on Alinia 2. Atrial fibrillation with RVR - rate controlled now on PO Verapamil. Cardiology following. Echo - normal EF 3. Acute kidney injury secondary to dehydration. improving 4. Abnormal liver function tests of unclear etiology. improving 5. Urinary retention status post Hayward catheter placement. on Flomax. [place]ward dced 06/22. voiding well. 6. Moderate protein calorie malnutrition. 7. Pancytopenia, probably secondary to chemotherapy. improving 8. Cholelithiasis - probably asymptomatic 9. Hypertension. 10. Diarrhea, rule out infectious etiology. 11. Right renal cyst. 12. History of stage IV sarcoma, currently on chemotherapy. 13. Dehydration on admission, improving 14. History of lung mass followed by Pulmonary. 15. History of alcohol abuse. on Thiamine/folic acid 16. Hypophosphatemia/ Hypokalemia PLAN: * Cont Digoxin/Verapamil * on Anticoagulation * Cont Alinia * AM labs * C Eval * Replace electrolytes * Oncology following Review of Systems - Medications/Allergies Allergies/Adverse Reactions: Allergies Allergy/AdvReac Type Severity Reaction Status Date / Time No Known Drug Allergies Allergy Verified 05/11/17 21:29 Medications: Current Medications Apixaban (Eliquis) 5 mg PO BID [facility] Last Admin: 06/22/17 09:26 Dose: 5 mg Bisacodyl (Dulcolax) 10 mg [place] Q24H PRN PRN Reason: Constipation Calcium Carbonate (Tums) 1,000 mg PO Q4H PRN PRN Reason: Heartburn or Indigestion Calcium/Vitamin D (Caltrate 600 + Vit D) 1 tab PO BID-[facility] Last Admin: 06/22/17 17:00 Dose: 1 tab Digoxin (Lanoxin) 0.125 mg PO DAILY [facility] Last Admin: 06/22/17 09:26 Dose: 0.125 mg Diltiazem HCl (Cardizem) 30 mg PO Q6H PRN PRN Reason: HR >120 sustained Famotidine (Pepcid) 20 mg PO DAILY [facility] Folic Acid (Folvite) 1 mg PO DAILY [facility] Last Admin: 06/22/17 09:27 Dose: 1 mg Sodium Chloride (Normal Saline 0.9%) 1,000 mls @ 70 mls/hr IV .[id number] [facility] Last Admin: 06/22/17 11:46 Dose: 1,000 mls Multivitamins (Theragran) 1 tab PO DAILY [facility] Last Admin: 06/22/17 09:27 Dose: 1 tab Nitazoxanide (Alinia) 500 mg PO BID [facility] Last Admin: 06/22/17 09:27 Dose: 500 mg Nitroglycerin (Nitrostat) 0.4 mg PO Q5MIN PRN PRN Reason: Chest Pain Ondansetron HCl (Zofran) 4 mg IVP Q6H PRN PRN Reason: Nausea/Vomiting Phenol (Chloraseptic [place] 180 Ml Bot) 0 ml PO BIDPRN PRN PRN Reason: Sore Throat Last Admin: 06/19/17 19:02 Dose: 1 spr Phosphorus (Kphos Neutral) 500 mg PO QID-WM [facility] Last Admin: 06/22/17 17:00 Dose: 500 mg Sodium Chloride (Flush - Normal Saline) 10 ml IVF Q12HR [facility] Last Admin: 06/22/17 09:28 Dose: Not Given Sodium Chloride (Flush - Normal Saline) 10 ml IVF PRN PRN PRN Reason: Saline Flush Last Admin: 06/20/17 17:11 Dose: 10 ml Tamsulosin HCl (Flomax) 0.4 mg PO HS [facility] Last Admin: 06/21/17 20:53 Dose: 0.4 mg Thiamine HCl (Thiamine) 100 mg PO DAILY [facility] Last Admin: 06/22/17 09:27 Dose: 100 mg Throat Lozenges (Cepastat Lozenges) 1 navjot PO Q2H PRN PRN Reason: Sore Throat Last Admin: 06/19/17 19:02 Dose: 1 navjot Tramadol HCl (Ultram) 50 mg PO Q6H PRN PRN Reason: Moderate Pain (4-6) Last Admin: 06/19/17 09:38 Dose: 50 mg Verapamil HCl (Calan Sr) 360 mg PO DAILY [facility] Last Admin: 06/22/17 12:29 Dose: 360 mg
[2017-06-22] MEDS: traMADol HCl 50 MG TAB PO PRN (20:30)
[2017-06-22] MEDS: Tamsulosin HCl 0.4 MG CAP PO SCH (20:30)
[2017-06-23] MEDS: Sodium Chloride 0.9% 1,000 ML IV SCH ×2 (04:21→18:37)
[2017-06-23 06:21] VITALS: BMI 29.8
[2017-06-23 06:32] LABS: Band 2 % (5-11); Hematocrit 31.4 % (42.0-52.0); Mean Platelet Volume 8.6 fL (7.4-10.4); Myelocyte 6 % (0-0); Neutrophil 66 % (42-75); Red Blood Cell (RBC) Count 3.43 mill/uL (4.70-6.10); White Blood Cell (WBC) Count 19.5 thou/uL (4.8-10.8)
[2017-06-23 06:39] LABS: Anion Gap 10 mmol/L (10-20); BUN (Urea Nitrogen) 11 mg/dL (8.4-25.7); BUN/Creatinine Ratio 22.45; Calc. Creatinine Clearance 221 mL/min (70-130); Calcium 6.5 mg/dL (7.8-10.44); Carbon Dioxide 23 mmol/L (23-31); Chloride 109 mmol/L (98-107); Estimated GFR-MDRD Greater than 90; Phosphorus 2.3 mg/dL (2.3-4.7)
[2017-06-23] MEDS ORDERED: Potassium Phosphate 12 MMOL, Admixture Fee 1 EACH in Sodium Chloride 0.9% 100 ML IVPB SCH (09:15)
[2017-06-23] MEDS: Apixaban 5 MG TAB PO SCH ×2 (11:21→21:16)
[2017-06-23] MEDS: Calcium Carbonate + Vit D 1 TAB PO SCH ×2 (11:21→18:37)
[2017-06-23] MEDS: Multivit, Therapeutic 1 TAB PO SCH (11:21)
[2017-06-23] MEDS: Digoxin 0.125 MG TAB PO SCH (11:21)
[2017-06-23] MEDS: Famotidine 20 MG TAB PO SCH (11:21)
[2017-06-23] MEDS: Folic Acid 1 MG TAB PO SCH (11:21)
[2017-06-23] MEDS: K-Phos Neutral 250 MG TAB PO SCH ×4 (11:23→21:22)
[2017-06-23] MEDS: Tamsulosin HCl 0.4 MG CAP PO SCH (21:16)
--- NOTE | 2017-06-23 22:19 | PDOC.PN ---
- Subjective Encounter Start Date: 06/23/17 Encounter Start Time: 10:30 Patient seen and examined. No new complaints. No overnight events. Diarrhea improving - Objective MAR Reviewed: Yes Vital Signs & Weight: Vital Signs (12 hours) Temp Pulse Resp BP BP BP BP 06/23/17 16:00 97.1 F L 79 20 110/56 L 06/23/17 13:37 126/68 121/73 123/65 06/23/17 12:00 97.0 F L 80 20 114/58 L 06/23/17 11:21 82 Pulse Ox 06/23/17 16:00 94 L 06/23/17 13:37 06/23/17 12:00 95 06/23/17 11:21 Weight Admit Weight 231 lb 0.711 oz Weight 245 lb 4.8 oz I&O: 06/22/17 06/23/17 06/24/17 06:59 06:59 06:59 Intake Total 1240 1440 1080 Output Total 750 350 Balance 490 1090 1080 Result Diagrams: 06/23/17 05:39 06/23/17 05:39 Phys Exam - Physical Examination Constitutional: NAD Respiratory: no wheezing, no rhonchi Cardiovascular: RRR, no rub Gastrointestinal: soft, non-tender, positive bowel sounds Musculoskeletal: no edema Neurological: moves all 4 limbs Psychiatric: A&O x 3 Dx/Plan - Plan IMPRESSION: 1. Sepsis with acute organ dysfunction due to Cryptosporidial gastroenteritis - on Alinia. Diarrhea better. 2. Atrial fibrillation with RVR - rate controlled now on PO Verapamil. Cardiology following. Echo - normal EF 3. Acute kidney injury secondary to dehydration. improving 4. Abnormal liver function tests of unclear etiology. improving 5. Urinary retention status post Hayward catheter placement. on Flomax. Hayward dced 06/22. voiding well. 6. Moderate protein calorie malnutrition. 7. Pancytopenia, probably secondary to chemotherapy. improving 8. Cholelithiasis - probably asymptomatic 9. Hypertension. 10. Diarrhea, rule out infectious etiology. 11. Right renal cyst. 12. History of stage IV sarcoma, currently on chemotherapy. 13. Dehydration on admission, improving 14. History of lung mass followed by Pulmonary. 15. History of alcohol abuse. on Thiamine/folic acid 16. Hypophosphatemia/ Hypokalemia PLAN: * Replace electrolytes * Cont Digoxin/Verapamil * on Anticoagulation * Cont Alinia * AM labs * C Eval * Oncology/Palliative care following * Change IVF to KVO Review of Systems - Review of Systems Constitutional: negative: Fever, Chills, Sweats, Weakness, Malaise, Other Respiratory: negative: Cough, Dry, Shortness of Breath, Hemoptysis, SOB with Excertion, Pleuritic Pain, Sputum, Wheezing Cardiovascular: negative: Chest Pain, Palpitations, Orthopnea, Paroxysmal Noc. Dyspnea, Edema, Light Headedness, Other Gastrointestinal: negative: Nausea, Vomiting, Abdominal Pain, Diarrhea, Constipation, Melena, Hematochezia, Other - Medications/Allergies Allergies/Adverse Reactions: Allergies Allergy/AdvReac Type Severity Reaction Status Date / Time No Known Drug Allergies Allergy Verified 05/11/17 21:29 Medications: Current Medications Apixaban (Eliquis) 5 mg PO BID [facility] Last Admin: 06/23/17 21:16 Dose: 5 mg Bisacodyl (Dulcolax) 10 mg [place] Q24H PRN PRN Reason: Constipation Calcium Carbonate (Tums) 1,000 mg PO Q4H PRN PRN Reason: Heartburn or Indigestion Calcium/Vitamin D (Caltrate 600 + Vit D) 1 tab PO BID-[facility] Last Admin: 06/23/17 18:37 Dose: 1 tab Digoxin (Lanoxin) 0.125 mg PO DAILY [facility] Last Admin: 06/23/17 11:21 Dose: 0.125 mg Diltiazem HCl (Cardizem) 30 mg PO Q6H PRN PRN Reason: HR >120 sustained Famotidine (Pepcid) 20 mg PO DAILY [facility] Last Admin: 06/23/17 11:21 Dose: 20 mg Folic Acid (Folvite) 1 mg PO DAILY [facility] Last Admin: 06/23/17 11:21 Dose: 1 mg Sodium Chloride (Normal Saline 0.9%) 1,000 mls @ 70 mls/hr IV .[id number] [facility] Last Admin: 06/23/17 18:37 Dose: 1,000 mls Miscellaneous Medication (Phos-Nak) 2 pkt PO BID-[facility] Last Admin: 06/23/17 15:21 Dose: 2 pkt Multivitamins (Theragran) 1 tab PO DAILY [facility] Last Admin: 06/23/17 11:21 Dose: 1 tab Nitazoxanide (Alinia) 500 mg PO BID [facility] Last Admin: 06/23/17 21:16 Dose: 500 mg Nitroglycerin (Nitrostat) 0.4 mg PO Q5MIN PRN PRN Reason: Chest Pain Ondansetron HCl (Zofran) 4 mg IVP Q6H PRN PRN Reason: Nausea/Vomiting Phenol (Chloraseptic [place] 180 Ml Bot) 0 ml PO BIDPRN PRN PRN Reason: Sore Throat Last Admin: 06/19/17 19:02 Dose: 1 spr Phosphorus (Kphos Neutral) 500 mg PO QID-WM [facility] Last Admin: 06/23/17 21:22 Dose: 500 mg Pneumococcal Polyvalent Vaccine (Pneumovax 23) 0.5 ml IM .ONCE ONE Stop: 06/24/17 09:01 Sodium Chloride (Flush - Normal Saline) 10 ml IVF Q12HR [facility] Last Admin: 06/23/17 21:35 Dose: Not Given Sodium Chloride (Flush - Normal Saline) 10 ml IVF PRN PRN PRN Reason: Saline Flush Last Admin: 06/20/17 17:11 Dose: 10 ml Tamsulosin HCl (Flomax) 0.4 mg PO HS [facility] Last Admin: 06/23/17 21:16 Dose: 0.4 mg Thiamine HCl (Thiamine) 100 mg PO DAILY [facility] Last Admin: 06/23/17 11:21 Dose: 100 mg Throat Lozenges (Cepastat Lozenges) 1 navjot PO Q2H PRN PRN Reason: Sore Throat Last Admin: 06/19/17 19:02 Dose: 1 navjot Tramadol HCl (Ultram) 50 mg PO Q6H PRN PRN Reason: Moderate Pain (4-6) Last Admin: 06/22/17 20:30 Dose: 50 mg Verapamil HCl (Calan Sr) 360 mg PO DAILY [facility] Last Admin: 06/23/17 15:20 Dose: 360 mg
[2017-06-24] MEDS ORDERED: Sodium Chloride 0.9% 1,000 ML IV SCH (07:06)
[2017-06-24 08:15] LABS: Magnesium 1.5 mg/dL (1.6-2.6)
[2017-06-24] MEDS ORDERED: FLU VACC TS2017-18 (>65YR) 0.5 ML SYRINGE IM ONE (09:00)
[2017-06-24] MEDS: K-Phos Neutral 250 MG TAB PO SCH ×5 (09:30→21:05)
[2017-06-24] MEDS: Folic Acid 1 MG TAB PO SCH (09:30)
[2017-06-24] MEDS: Digoxin 0.125 MG TAB PO SCH (09:30)
[2017-06-24] MEDS: Famotidine 20 MG TAB PO SCH (09:30)
[2017-06-24] MEDS: Multivit, Therapeutic 1 TAB PO SCH (09:30)
[2017-06-24] MEDS: Apixaban 5 MG TAB PO SCH ×2 (09:30→21:05)
[2017-06-24] MEDS: Calcium Carbonate + Vit D 1 TAB PO SCH ×2 (11:21→17:33)
--- NOTE | 2017-06-24 18:30 | PDOC.PN ---
- Subjective Encounter Start Date: 06/24/17 Encounter Start Time: 10:30 Patient seen and examined. Abd cramping/Diarrhea +. No overnight events. - Objective Resuscitation Status: Resuscitation Status DNR:Do Not Resuscitate MAR Reviewed: Yes Vital Signs & Weight: Vital Signs (12 hours) Pulse 06/24/17 09:30 71 Weight Admit Weight 231 lb 0.711 oz Weight 245 lb 5.992 oz I&O: 06/23/17 06/24/17 06/25/17 06:59 06:59 06:59 Intake Total 1440 1920 Output Total 350 Balance 1090 1920 Result Diagrams: 06/23/17 05:39 06/24/17 07:48 EKG Reviewed by me: Yes (Tele Afib - rate controlled) Phys Exam - Physical Examination Constitutional: NAD Respiratory: no wheezing, no rhonchi Cardiovascular: no rub, irregular Gastrointestinal: soft, non-tender, positive bowel sounds Musculoskeletal: no edema Neurological: moves all 4 limbs Psychiatric: A&O x 3 Dx/Plan - Plan IMPRESSION: 1. Sepsis with acute organ dysfunction due to Cryptosporidial gastroenteritis - on Alinia. Diarrhea improving. 2. Atrial fibrillation with RVR - rate controlled now on PO Verapamil. Cardiology following. Echo - normal EF. on Anticoagulation 3. Hypophosphatemia/ Hypokalemia/ hypomagnessemia 4. Abnormal liver function tests of unclear etiology. improved 5. Urinary retention status post Hayward catheter placement. on Flomax. Hayward dced 06/22. voiding well. 6. Moderate protein calorie malnutrition. 7. Pancytopenia, probably secondary to chemotherapy. improving 8. Cholelithiasis - probably asymptomatic 9. Hypertension. 10. Diarrhea, rule out infectious etiology. 11. Right renal cyst. 12. History of stage IV sarcoma, currently on chemotherapy. 13. Dehydration on admission, improving 14. History of lung mass followed by Pulmonary. 15. History of alcohol abuse. on Thiamine/folic acid 16. Acute kidney injury secondary to dehydration. improved PLAN: * Cont therapy - unable to ambulate due to gen weakness * Cont Digoxin/Verapamil * Replace electrolytes * on Anticoagulation * Cont Alinia * AM labs * HHC arranged * Oncology/Palliative care following * Patient has no IV access - Will cont replacing electrolytes PO * DNR Review of Systems - Review of Systems Constitutional: negative: Fever, Chills, Sweats, Weakness, Malaise, Other Respiratory: negative: Cough, Dry, Shortness of Breath, Hemoptysis, SOB with Excertion, Pleuritic Pain, Sputum, Wheezing Cardiovascular: negative: Chest Pain, Palpitations, Orthopnea, Paroxysmal Noc. Dyspnea, Edema, Light Headedness, Other - Medications/Allergies Allergies/Adverse Reactions: Allergies Allergy/AdvReac Type Severity Reaction Status Date / Time No Known Drug Allergies Allergy Verified 05/11/17 21:29 Medications: Current Medications Apixaban (Eliquis) 5 mg PO BID [facility] Last Admin: 06/24/17 09:30 Dose: 5 mg Bisacodyl (Dulcolax) 10 mg [place] Q24H PRN PRN Reason: Constipation Calcium Carbonate (Tums) 1,000 mg PO Q4H PRN PRN Reason: Heartburn or Indigestion Cal[facility]itamin [facility] ([facility]trate 600 + Vit D) [facility] Last Admin: 06/24/17 17:33 Dose: 1 tab Digoxin (Lanoxin) 0.125 mg PO DAILY [facility] Last Admin: 06/24/17 09:30 Dose: 0.125 mg Diltiazem HCl (Cardizem) 30 mg PO Q6H PRN PRN Reason: HR >120 sustained Famotidine (Pepcid) 20 mg PO DAILY [facility] Last Admin: 06/24/17 09:30 Dose: 20 mg Folic Acid (Folvite) 1 mg PO DAILY [facility] Last Admin: 06/24/17 09:30 Dose: 1 mg Magnesium Chloride (Slow-Mag) 64 mg PO BID [facility] Miscellaneous Medication ([facility]os-Nak) [facility] Last Admin: 06/24/17 17:39 Dose: 2 pkt Multivitamins (Theragran) 1 tab PO DAILY [facility] Last Admin: 06/24/17 09:30 Dose: 1 tab Nitazoxanide (Alinia) 500 mg PO BID [facility] Last Admin: 06/24/17 09:30 Dose: 500 mg Nitroglycerin (Nitrostat) 0.4 mg PO Q5MIN PRN PRN Reason: Chest Pain Ondansetron HCl (Zofran) 4 mg IVP Q6H PRN PRN Reason: Nausea/Vomiting Phenol (Chloraseptic [place] 180 Ml Bot) 0 ml PO BIDPRN PRN PRN Reason: Sore Throat Last Admin: 06/19/17 19:02 Dose: 1 spr Phosphorus (Kphos Neutral) 500 mg PO QID-WM [facility] Last Admin: 06/24/17 17:33 Dose: 500 mg Saccharomyces Boulardii (Florastor) 250 mg PO BID [facility] Sodium Chloride (Flush - Normal Saline) 10 ml IVF Q12HR [facility] Last Admin: 06/24/17 09:30 Dose: Not Given Sodium Chloride (Flush - Normal Saline) 10 ml IVF PRN PRN PRN Reason: Saline Flush Last Admin: 06/20/17 17:11 Dose: 10 ml Tamsulosin HCl (Flomax) 0.4 mg PO HS [facility] Last Admin: 06/23/17 21:16 Dose: 0.4 mg Throat Lozenges (Cepastat Lozenges) 1 navjot PO Q2H PRN PRN Reason: Sore Throat Last Admin: 06/19/17 19:02 Dose: 1 navjot Tramadol HCl (Ultram) 50 mg PO Q6H PRN PRN Reason: Moderate Pain (4-6) Last Admin: 06/22/17 20:30 Dose: 50 mg Verapamil HCl (Calan Sr) 360 mg PO DAILY [facility] Last Admin: 06/24/17 09:30 Dose: 360 mg
[2017-06-24] MEDS: Sodium Chloride 0.9% 1,000 ML IV SCH (20:59)
[2017-06-24] MEDS: Magnesium Chloride 64 MG TAB PO SCH (21:05)
[2017-06-24] MEDS: Tamsulosin HCl 0.4 MG CAP PO SCH (21:06)
[2017-06-24] MEDS: Saccharomyces boulardii 250 MG CAP PO SCH (21:06)
[2017-06-25 05:13] LABS: Hematocrit 34.2 % (42.0-52.0)
[2017-06-25 05:33] LABS: Anion Gap 9 mmol/L (10-20); BUN (Urea Nitrogen) 11 mg/dL (8.4-25.7); BUN/Creatinine Ratio 19.64; Calc. Creatinine Clearance 193 mL/min (70-130); Calcium 7.1 mg/dL (7.8-10.44); Carbon Dioxide 27 mmol/L (23-31); Chloride 107 mmol/L (98-107); Estimated GFR-MDRD Greater than 90; Magnesium 1.5 mg/dL (1.6-2.6); Phosphorus 2.6 mg/dL (2.3-4.7)
[2017-06-25] MEDS ORDERED: FLU VACC TS2017-18 (>65YR) 0.5 ML SYRINGE IM ONE (09:00)
[2017-06-25] MEDS: K-Phos Neutral 250 MG TAB PO SCH ×4 (09:06→20:42)
[2017-06-25] MEDS: Calcium Carbonate + Vit D 1 TAB PO SCH ×2 (09:06→17:13)
[2017-06-25] MEDS: Magnesium Chloride 64 MG TAB PO SCH ×2 (09:25→20:42)
[2017-06-25] MEDS: Apixaban 5 MG TAB PO SCH ×2 (09:27→20:42)
[2017-06-25] MEDS: Famotidine 20 MG TAB PO SCH (09:27)
[2017-06-25] MEDS: Saccharomyces boulardii 250 MG CAP PO SCH ×2 (09:27→20:42)
[2017-06-25] MEDS: Digoxin 0.125 MG TAB PO SCH (09:27)
[2017-06-25] MEDS: Folic Acid 1 MG TAB PO SCH (09:28)
[2017-06-25] MEDS: Multivit, Therapeutic 1 TAB PO SCH (09:28)
[2017-06-25] MEDS ORDERED: Magnesium Sulfate 2 GM in Sodium Chloride 0.9% 100 ML IVPB SCH (12:30)
[2017-06-25] MEDS ORDERED: Potassium Chloride 40 MEQ in Sodium Chloride 0.9% 500 ML IV SCH (12:30)
--- NOTE | 2017-06-25 15:14 | PDOC.PN ---
- Subjective Encounter Start Date: 06/25/17 Encounter Start Time: 12:00 Patient seen and examined. No new complaints. No overnight events. Feel gen weak. Diarrhea slowly getting better. - Objective Resuscitation Status: Resuscitation Status DNR:Do Not Resuscitate MAR Reviewed: Yes Vital Signs & Weight: Vital Signs (12 hours) Temp Pulse Pulse Pulse Resp BP BP 06/25/17 12:55 98.6 F 73 18 06/25/17 09:27 74 06/25/17 08:55 97.9 F 74 18 06/25/17 08:53 82 80 137/70 154/72 H 06/25/17 08:00 97.9 F 74 18 06/25/17 03:42 98.5 F 69 18 BP Pulse Ox 06/25/17 12:55 126/60 97 06/25/17 09:27 06/25/17 08:55 137/70 98 06/25/17 08:53 06/25/17 08:00 98 06/25/17 03:42 134/64 96 Weight Admit Weight 231 lb 0.711 oz Weight 245 lb 1.6 oz I&O: 06/24/17 06/25/17 06/26/17 06:59 06:59 06:59 Intake Total 0 1560 Balance 0 1560 Result Diagrams: 06/25/17 04:24 06/25/17 04:24 Phys Exam - Physical Examination Constitutional: NAD Respiratory: no wheezing, no rhonchi Cardiovascular: no rub, irregular Gastrointestinal: soft, non-tender, positive bowel sounds Musculoskeletal: no edema Neurological: moves all 4 limbs Psychiatric: A&O x 3 Dx/Plan - Plan IMPRESSION: 1. Sepsis with acute organ dysfunction due to Cryptosporidial gastroenteritis - on Alinia. Diarrhea improving. 2. Atrial fibrillation with RVR - rate controlled now on PO Verapamil. Cardiology signed off. Echo - normal EF. on Anticoagulation 3. Hypophosphatemia/ Hypokalemia/ hypomagnessemia 4. Abnormal liver function tests of unclear etiology. improved 5. Urinary retention status post Hayward catheter placement. on Flomax. Hayward dced 06/22. voiding well. 6. Moderate protein calorie malnutrition. 7. Pancytopenia, probably secondary to chemotherapy. improving 8. Cholelithiasis - probably asymptomatic 9. Hypertension. 10. Diarrhea due to #1. 11. Right renal cyst. 12. History of stage IV sarcoma, currently on chemotherapy. 13. Dehydration on admission, improving 14. History of lung mass followed by Pulmonary. 15. History of alcohol abuse. on Thiamine/folic acid 16. Acute kidney injury secondary to dehydration. improved PLAN: * Replace Mg/Potassium * Dc Phos NAK * Cont Kphos * Cont PT - unable to ambulate due to gen weakness * Cont Digoxin/Verapamil * Cont other meds as below * on Anticoagulation * Cont Alinia * AM labs * HHC arranged * Oncology/Palliative care following * DNR Review of Systems - Review of Systems Respiratory: negative: Cough, Dry, Shortness of Breath, Hemoptysis, SOB with Excertion, Pleuritic Pain, Sputum, Wheezing Cardiovascular: negative: Chest Pain, Palpitations, Orthopnea, Paroxysmal Noc. Dyspnea, Edema, Light Headedness, Other Neurological: negative: Weakness, Numbness, Incoordination, Change in Speech, Confusion, Seizures, Other - Medications/Allergies Allergies/Adverse Reactions: Allergies Allergy/AdvReac Type Severity Reaction Status Date / Time No Known Drug Allergies Allergy Verified 05/11/17 21:29 Medications: Current Medications Apixaban (Eliquis) 5 mg PO BID [facility] Last Admin: 06/25/17 09:27 Dose: 5 mg Bisacodyl (Dulcolax) 10 mg IN Q24H PRN PRN Reason: Constipation Calcium Carbonate (Tums) 1,000 mg PO Q4H PRN PRN Reason: Heartburn or Indigestion Calcium/Vitamin D (Caltrate 600 + Vit D) 1 tab PO BID[facility] Last Admin: 06/25/17 09:06 Dose: 1 tab Digoxin (Lanoxin) 0.125 mg PO DAILY [facility] Last Admin: 06/25/17 09:27 Dose: 0.125 mg Diltiazem HCl (Cardizem) 30 mg PO Q6H PRN PRN Reason: HR >120 sustained Famotidine (Pepcid) 20 mg PO DAILY [facility] Last Admin: 06/25/17 09:27 Dose: 20 mg Folic Acid (Folvite) 1 mg PO DAILY [facility] Last Admin: 06/25/17 09:28 Dose: 1 mg Potassium Chloride 40 meq/ (Sodium Chloride) 520 mls @ 100 mls/hr IV .Q5H12M [facility] Stop: 10/06/17 17:41 Magnesium Chloride (Slow-Mag) 64 mg PO BID [facility] Last Admin: 06/25/17 09:25 Dose: 64 mg Multivitamins (Theragran) 1 tab PO DAILY [facility] Last Admin: 06/25/17 09:28 Dose: 1 tab Nitazoxanide (Alinia) 500 mg PO BID [facility] Last Admin: 06/25/17 09:06 Dose: 500 mg Nitroglycerin (Nitrostat) 0.4 mg PO Q5MIN PRN PRN Reason: Chest Pain Ondansetron HCl (Zofran) 4 mg IVP Q6H PRN PRN Reason: Nausea/Vomiting Phenol (Chloraseptic [place] 180 Ml Bot) 0 ml PO BIDPRN PRN PRN Reason: Sore Throat Last Admin: 06/19/17 19:02 Dose: 1 spr Phosphorus (Kphos Neutral) 500 mg PO QID-WM [facility] Last Admin: 06/25/17 13:00 Dose: 500 mg Saccharomyces Boulardii (Florastor) 250 mg PO BID [facility] Last Admin: 06/25/17 09:27 Dose: 250 mg Sodium Chloride (Flush - Normal Saline) 10 ml IVF Q12HR [facility] Last Admin: 06/25/17 09:29 Dose: 10 ml Sodium Chloride (Flush - Normal Saline) 10 ml IVF PRN PRN PRN Reason: Saline Flush Last Admin: 06/20/17 17:11 Dose: 10 ml Tamsulosin HCl (Flomax) 0.4 mg PO HS [facility] Last Admin: 06/24/17 21:06 Dose: 0.4 mg Throat Lozenges (Cepastat Lozenges) 1 navjot PO Q2H PRN PRN Reason: Sore Throat Last Admin: 06/19/17 19:02 Dose: 1 navjot Tramadol HCl (Ultram) 50 mg PO Q6H PRN PRN Reason: Moderate Pain (4-6) Last Admin: 06/22/17 20:30 Dose: 50 mg Verapamil HCl (Calan Sr) 360 mg PO DAILY [facility] Last Admin: 06/25/17 09:28 Dose: 360 mg
[2017-06-25] MEDS: Tamsulosin HCl 0.4 MG CAP PO SCH (20:44)
[2017-06-26 05:25] LABS: Magnesium 1.8 mg/dL (1.6-2.6); Phosphorus 2.9 mg/dL (2.3-4.7)
[2017-06-26] MEDS ORDERED: Potassium Chloride 10 MEQ TAB PO SCH (08:30)
[2017-06-26] MEDS: K-Phos Neutral 250 MG TAB PO SCH ×3 (08:31→17:45)
[2017-06-26] MEDS: Calcium Carbonate + Vit D 1 TAB PO SCH ×2 (08:31→17:45)
[2017-06-26] MEDS: Digoxin 0.125 MG TAB PO SCH (09:53)
[2017-06-26] MEDS: Apixaban 5 MG TAB PO SCH (09:53)
[2017-06-26] MEDS: Folic Acid 1 MG TAB PO SCH (09:53)
[2017-06-26] MEDS: Famotidine 20 MG TAB PO SCH (09:53)
[2017-06-26] MEDS: Multivit, Therapeutic 1 TAB PO SCH (09:53)
[2017-06-26] MEDS: Magnesium Chloride 64 MG TAB PO SCH (09:55)
[2017-06-26] MEDS: Saccharomyces boulardii 250 MG CAP PO SCH (09:55)
--- NOTE | 2017-06-26 11:56 | EKG ---
Test Reason : Blood Pressure : / mmHG Vent. Rate : 101 BPM Atrial Rate : 101 BPM P-R Int : 160 ms QRS Dur : 094 ms QT Int : 386 ms P-R-T Axes : 062 -21 057 degrees QTc Int : 500 ms Sinus tachycardia Inferior infarct , age undetermined Abnormal ECG Confirmed by DOUGLAS DANIEL, ARYAN ([id number]), editor at large FREDO SALAS ([id number]) on 06/26/2017 11:55:20 AM Referred By: Confirmed By:ARYAN COLE MD
[2017-06-26] MEDS: Potassium Chloride 10 MEQ TAB PO SCH ×2 (13:45→17:45)
[2017-06-26 17:32] VITALS: BP 151/68; TEMP 98.3
--- NOTE | 2017-06-27 12:06 | DIS ---
DATE OF ADMISSION: 06/18/2017 DATE OF DISCHARGE: 06/26/2017 DISCHARGE DISPOSITION: [facility] ALLERGIES: No known drug allergies. The patient was seen and examined on the day of discharge. Denies any new complaints. No chest roxane n, shortness of breath palpitations reported. FOLLOWUP: 1. Follow up with primary care physician, Evita Ramírez, nurse practitioner in 2-3 days. 2. Follow up with Cardiology, Dr. Uriel Lane in 2 weeks. 3. [facility] has been arranged. ALLERGIES: No known drug allergies. DISCHARGE MEDICATIONS: 1. Alinia 500 mg b.i.d. for the next 5 days. 2. Potassium chloride 10 mEq daily for next 7 days. 3. Verapamil Sustained Release 360 mg daily. 4. Eliquis 5 mg b.i.d. 5. Digoxin 0.125 mg daily. 6. Multivitamin 1 tablet daily. Basic metabolic panel, magnesium and phosphorus in 1 week is recommended. Primary care physician ad vised to follow. Follow up with Oncology as scheduled. BRIEF HOSPITAL COURSE: Patient is a 72-year-old male with stage IV sarcoma, currently on chemothera py, presented to the hospital with generalized weakness, loss of appetite, nausea with abdominal dis comfort and diarrhea. His workup in the emergency room was consistent with acute kidney injury. Pl ease refer to the history and physical dated 06/18/2017 for further details. The patient was admitted to the hospital with a diagnosis of sepsis with acute organ dysfunction. N ext morning, he was found to be neutropenic. His stool workup was consistent with cryptosporidiosis for which he was started on nitazoxanide. Empiric antibiotics were discontinued. He was seen by I nfectious Disease and Oncology service. While on the medical floor, patient developed atrial fibrillation with rapid ventricular response fo r which he was transferred to telemetry floor. He was evaluated by Cardiology, Dr. Uriel Lane. H is echo showed left ventricular ejection fraction of 60%-65% with normal diastolic dysfunction. He was started on Cardizem drip that has been changed to verapamil by mouth along with digoxin. He has converted to sinus rhythm. He was also started on anticoagulation. He also had several electrolyt e abnormalities that has been corrected. He received physical therapy during this hospital stay. Inpatient rehabilitation was discussed with the patient; however, patient decided to go home with [facility]. The patient is at high risk of fall while on anticoagulation. Patient understands t his risk and still prefers to go home. His diarrhea has significantly improved. He will continue A linia for the next 5 days per Infectious Disease recommendation. FINAL DIAGNOSES: 1. Sepsis with acute organ dysfunction. 2. Cryptosporidial gastroenteritis. 3. Atrial fibrillation with rapid ventricular response converted to sinus rhythm, started on antico agulation. Patient understands the risks associated with anticoagulation. 4. Multiple electrolyte imbalance including hypokalemia, hypomagnesemia, hypophosphatemia, correcte d. 5. Abnormal liver function tests on admission. His bilirubin was 4.2 that has normalized. 6. Moderate protein calorie malnutrition. 7. Urinary retention initially requiring Hayward catheter. The patient's Hayward catheter has been dis continued. 8. Moderate protein calorie malnutrition. 9. Pancytopenia, on chemotherapy. 10. Cholelithiasis. 11. Hypertension. 12. Diarrhea secondary to cryptosporidial gastroenteritis. 13. Right renal cyst. 14. Stage IV sarcoma on chemotherapy. 15. Dehydration, resolved. 16. History of lung mass followed by Pulmonary. 17. History of alcohol abuse in the past. 18. Acute kidney injury secondary to dehydration, resolved. Plan of care was discussed with the patient and he stated understanding. Total time coordinating the discharge of this patient was 33 minutes.
== END 2017-06-26 18:05 | disposition home health service (06) | DRG 871 ==
LOC: ERS 00:42 → ONC 02:42 → OBSVTOIN 09:29 → 2NO 06-20 08:22
PROVIDERS: ADMIT Internal Medicine; ATTEND Internal Medicine
DX: A41.9 Sepsis, unspecified organism (principal); D61.810 Antineoplastic chemotherapy induced pancytopenia; N17.9 Acute kidney failure, unspecified; D61.818 Other pancytopenia; A07.2 Cryptosporidiosis; C79.70 Secondary malignant neoplasm of unspecified adrenal gland; C49.6 Malignant neoplasm of connective and soft tissue of trunk, unspecified; E44.0 Moderate protein-calorie malnutrition; C49.9 Malignant neoplasm of connective and soft tissue, unspecified; I48.91 Unspecified atrial fibrillation; D70.1 Agranulocytosis secondary to cancer chemotherapy; I10 Essential (primary) hypertension; E83.39 Other disorders of phosphorus metabolism; E86.0 Dehydration; E86.1 Hypovolemia; R65.20 Severe sepsis without septic shock; Z92.21 Personal history of antineoplastic chemotherapy; R33.9 Retention of urine, unspecified; K80.20 Calculus of gallbladder without cholecystitis without obstruction; Z68.30 Body mass index [BMI] 30.0-30.9, adult; R91.8 Other nonspecific abnormal finding of lung field; F10.21 Alcohol dependence, in remission; E87.6 Hypokalemia; E83.42 Hypomagnesemia; N28.1 Cyst of kidney, acquired; Z77.098 Contact with and (suspected) exposure to other hazardous, chiefly nonmedicinal, chemicals; Z87.891 Personal history of nicotine dependence; E80.6 Other disorders of bilirubin metabolism; Z66 Do not resuscitate
CPT/HCPCS: 36415; 74020; 76705; 80048; 80069; 80076; 81001; 83630; 83735; 84100; 84132; 84484; 85007; 85014; 85018; 85027; 85049; 85610; 87015; 87040; 87045; 87046; 87086; 87324; 87328; 87329; 87449; 87899; 90471; 90682; 93005; 93010; 93306; 94760; 96361; 96374; A4216; G0008; G8978-GP-CM; G8979-GP-CJ; G8979-GP-CK; G8987-GO-CK; G8988-GO-CI; J0692; J1160; J1644; J1650; J2270; J3475; J3480; J7050; Q2036

== ENCOUNTER 2017-08-16 10:02 | Outpatient (CLI) | payer MEDICARE, OTHER ==
[~2017-08-16 10:02] MED LIST: Iopamidol 370 76% 100 ML VIAL ONE
--- NOTE | 2017-08-16 16:11 | CT ---
CT CHEST WITH CONTRAST CT ABDOMEN AND PELVIS WITH CONTRAST: Technique: Multiple axial tomograms were obtained through the chest, abdomen, and pelvis with IV enha ncement. 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 Comparison: CT chest, abdomen and pelvis dated 05-11-17. FINDINGS: CT CHEST: The bilobed mass in the left upper lobe described on the prior exam is again seen. This bilobed mass does not appear significantly changed and continues to measure approximately 3.5 cm total AP dimensio n in the axial plane. There is a new 7 mm nodule in the left apex. There is a tiny nodule within the fissure in the left midlung is unchanged continuing to measure in t he 4 mm range. The previously noted 7 mm nodule in the right upper lobe has significantly decreased in size. There i s a tiny nodular density at this location today seen on axial imaging measuring in the 3 mm range. Th ere is a nonspecific area of ground glass opacity in this region today. There is linear parenchymal opacity in the posterior right upper lobe along the fissure which could r epresent atelectasis or patchy infiltrate. Evidence of a tiny right effusion which is new. The right hilar mass noted previously has decreased in size. This previously measured up to 3.5 cm cr aniocaudal in width. Today it measures approximately 2.0 cm AP and width in the axial plane. IMPRESSION: 1. The bilobed 3.5 cm mass in the left upper lobe does not appear significantly changed. 2. Previously described 7 mm nodule in the right upper lobe has significantly decreased in size. 3. The right hilar mass has decreased in size as noted above. 4. Tiny right effusion is seen. There is some linear atelectasis and/or infiltrate along the fissure in the right midlung field today. 5. Other tiny nodules are stable. CT ABDOMEN AND PELVIS: Liver, spleen, and pancreas appear unremarkable. The large mass described previously along the medial aspect of the liver obscuring the caudate lobe a nd compressing the inferior vena cava has significantly decreased in size. There is an area of residu al mass density which appears to involve the right adrenal gland at this location. This mass measures 4.5 cm craniocaudal dimension in the coronal plane. There is some associated fluid surrounding this mass. Inferior vena cava appears patent. There is a lymph node seen just posterior to the stomach in the hepatopancreatic region measuring 1.5 cm. This small lymph node is unchanged when compared to prior exam. The left adrenal gland remains mildly prominent but the left adrenal gland noted previously has signi ficantly decreased in size. The left adrenal mass today measures approximately 1.5 cm AP dimension wh ereas it previously measured 3.0 cm AP dimension. The 4.5 cm left renal cyst is unchanged. There are other smaller bilateral renal cystic lesions which are stable. Small calcification upper collecting structures of the left kidney measuring 3-4 mm is u nchanged. Kidneys appear stable. The large mass described previously involving the iliacus muscle is again seen but has decreased in s ize. This mass measures 7 cm AP x 3.2 cm width today whereas previous measurements were recorded at 9 .5 x 7.0 cm. There are areas of nodular enhancement within this mass. The previously described mass in the right retroperitoneum inferior to the right kidney is again seen but has decreased in size. This mass measures 1.5 cm today whereas it previously measured 3.0 cm. There is a small amount of free fluid in the deep pelvis seen today. Urinary bladder is contracted. There is a soft tissue nodule seen today measuring 1.2 cm which lies along the anterior border of the bladder just to the left of midline. A tiny density was present at this site previously. This probab ly represents an enlarged lymph node. IMPRESSION: 1. The previously described mass along the medial aspect of the right kidney has significantly decrea sed in size. Today there is a residual right adrenal mass at this location with measurements given ab ove. There is some surrounding fluid at this location today. 2. The left adrenal mass has also decreased in size. 3. The large mass involving the iliacus muscle on the left has decreased in size with dimensions give n above. There continues to be areas of nodular enhancement within this mass. 4. Right retroperitoneal mass described previously inferior to the right kidney has decreased in size with dimensions above. 5. There is enlarging nodular mass seen along the anterior border of the bladder to the left of midli ne measuring 1.2 cm on today's exam. This has enlarged since prior study. 6. Renal cystic lesions are stable. 7. Cholelithiasis again noted. POS: [facility]
== END 2017-08-16 10:03 | disposition home or self-care (01) ==
LOC: CT 10:02
PROVIDERS: ATTEND Internal Medicine Hematology & Oncology
DX: C49.4 Malignant neoplasm of connective and soft tissue of abdomen (principal); R91.1 Solitary pulmonary nodule; J98.11 Atelectasis
CPT/HCPCS: 71260; 74177

== ENCOUNTER 2017-11-08 10:02 | Outpatient (CLI) | payer MEDICARE, OTHER ==
--- NOTE | 2017-11-08 12:51 | CT ---
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 COMPARISON: 08/16/17. FINDINGS: The bilobed mass in the left upper lobe has increased in size from 3.5 cm on the previous study to 3. 8 cm on the current exam. Bilateral pleural effusions are present, right larger than left. The right-sided effusion is larger a nd the left one is new since the previous study. No pericardial effusion is noted. The 2.0 cm right hilar mass is stable. There has been interval development of ascites in the abdomen and pelvis. Cholelithiasis is again see n. The liver, spleen, and pancreas are unremarkable. Bilateral renal cysts are again noted. There has been interval increase in size of the right adrenal mass, currently measuring 7.1 cm in AP dimension. The left adrenal mass is decreased in size, measuring 3.0 x 1.0 cm. The left-sided iliopsoas mass is larger, measuring 8.1 cm in AP dimension. The 1.5 cm soft tissue mas s in the right iliac fossa is stable. The mass anterior to the bladder measures 3.3 cm (previously 2.7 cm). The large mass in the subcutaneous fat of the right posterior pelvis/buttock has increased in size me asuring 10.8 x 6.5 x 11.8 cm. No free air is seen in the abdomen. The small bowel loops are not abnormally dilated. There are degen erative changes in the spine. IMPRESSION: Interval worsening since 08/16/17. POS: [facility]
[2017-11-08] MEDS ORDERED: Iopamidol 370 76% 100 ML VIAL ONE (13:22)
== END 2017-11-08 10:03 | disposition home or self-care (01) ==
LOC: EDBD → CT 10:02
PROVIDERS: ATTEND Internal Medicine Hematology & Oncology
DX: C49.4 Malignant neoplasm of connective and soft tissue of abdomen (principal)
CPT/HCPCS: 71260; 74177

== ENCOUNTER → 2017-11-16 | Day surgery (SDC) | payer MEDICARE, OTHER ==
[2017-11-15 13:50] VITALS: BMI 32.3
[~2017-11-16] MED LIST changes: +FLU VACC TS2017-18 (>65YR) 0.5 ML SYRINGE IM ONE; -Iopamidol 370 76% 100 ML VIAL ONE
[2017-11-16 08:26] LABS: INR-International Normal Ratio 1.2; PTT 40.9 SEC (22.9-36.1); Prothrombin Time 15.8 SEC (12.0-14.7)
[2017-11-16 09:52] VITALS: TEMP 98.2
--- NOTE | 2017-11-16 12:37 | ULT ---
ULTRASOUND GUIDED PARACENTESIS: Date: 11-16-17 History: Patient with history of sarcoma. Recurrent ascites. Technique: After informed consent was obtained, the patient was placed on the sonography table in supine positio n. Limited sonographic evaluation of the abdomen was performed. An area in the midaxillary line right mid abdomen was marked and the area of meticulously prepped and draped in the usual sterile fashion. Skin subcutaneous tissues were infiltrated with buffered 1% Lidocaine for local anesthesia. Small sk in incision was made. Utilizing concurrent real-time ultrasound guidance, a 19 gauge needle with 5 [place] sheath was advanc ed into the abdomen. After return of fluid the sheath was advanced and needle was removed. Approximat juliana 3 L of cloudy yellow colored fluid was aspirated. The sheath was removed and hemostatis was achie mello with direct pressure. Dry sterile dressing was placed. Follow up sonographic imaging demonstrates almost complete resolution of the intraperitoneal free fluid. IMPRESSION: Technically successful ultrasound guided paracentesis. POS: [facility]
== END ==
LOC: ULT 07:52
PROVIDERS: ATTEND Internal Medicine Hematology & Oncology
PROC: 0W9G3ZX Drainage of Peritoneal Cavity, Percutaneous Approach, Diagnostic (ICD-10-PCS; principal; 2017-11-16)
DX: R18.8 Other ascites (principal); C49.9 Malignant neoplasm of connective and soft tissue, unspecified; C78.02 Secondary malignant neoplasm of left lung; R03.0 Elevated blood-pressure reading, without diagnosis of hypertension; I48.0 Paroxysmal atrial fibrillation; I10 Essential (primary) hypertension; Z87.891 Personal history of nicotine dependence
CPT/HCPCS: 49083; 85610; 85730

== ENCOUNTER 2017-12-10 13:30 | Outpatient (CLI) | payer MEDICARE, OTHER | END 2017-12-10 13:31 | disposition home or self-care (01) | LOC: ULT 13:30 | PROVIDERS: ATTEND Internal Medicine Hematology & Oncology | DX: Z51.11 Encounter for antineoplastic chemotherapy (principal); C49.4 Malignant neoplasm of connective and soft tissue of abdomen; Z79.899 Other long term (current) drug therapy; I08.3 Combined rheumatic disorders of mitral, aortic and tricuspid valves; R18.8 Other ascites | CPT/HCPCS: 93306 ==

== ENCOUNTER 2017-12-22 10:57 | Inpatient (IN) | payer MEDICARE, OTHER ==
[2017-12-22] MEDS ORDERED: Morphine 4 MG/ML VIAL ONE ×2 (11:46→13:06)
[2017-12-22 12:15] LABS: PTT 39.4 SEC (22.9-36.1)
[2017-12-22 12:19] LABS: INR-International Normal Ratio 1.3; Prothrombin Time 16.2 SEC (12.0-14.7)
[2017-12-22 12:27] LABS: ALT (SGPT) 7 U/L (8-55); AST (SGOT) 8 U/L (5-34); Albumin 1.9 g/dL (3.4-4.8); Alkaline Phosphatase 132 U/L (40-150); Anion Gap 14 mmol/L (10-20); BUN (Urea Nitrogen) 13 mg/dL (8.4-25.7); Bilirubin, Total 1.4 mg/dL (0.2-1.2); Calc. Creatinine Clearance 0 mL/min (70-130); Calcium 7.5 mg/dL (7.8-10.44); Carbon Dioxide 27 mmol/L (23-31); Chloride 94 mmol/L (98-107); Estimated GFR-MDRD Greater than 90; Globulin 2.7 g/dL (2.4-3.5); Glucose 75 mg/dL (83-110); Potassium 3.1 mmol/L (3.5-5.1); Protein, Total 4.6 g/dL (5.8-8.1); Sodium 132 mmol/L (136-145)
[2017-12-22 12:32] LABS: CKMB 0.6 ng/mL (0-6.6); Troponin I 0.105 ng/mL (< 0.028)
[2017-12-22 12:34] LABS: Hemoglobin 10.4 g/dL (14.0-18.0); Mean Corpuscular HGB CONC 32.1 g/dL (32.0-36.0); Mean Corpuscular Hemoglobin 37.2 pg (27.0-31.0); Mean Platelet Volume 11.9 fL (7.4-10.4); Platelet Count 14 thou/uL (130-400); RBC Distribution Width 15.4 % (11.5-14.5); Red Blood Cell (RBC) Count 2.78 mill/uL (4.70-6.10); Reflex for Review?? NO; White Blood Cell (WBC) Count 1.3 thou/uL (4.8-10.8)
[2017-12-22 12:50] LABS: Band 4 % (5-11); Lymphocytes 68 % (21-51); MDiff Complete? YES; Macrocytosis MODERATE=16-30 cells (100X) (0-5/hpf); Monocytes 24 % (0-10); Neutrophil 4 % (42-75); PLT Morphology Comment Appears Decreased
[2017-12-22] MEDS ORDERED: Potassium Chloride 20 MEQ TAB ONE ×2 (13:07)
[2017-12-22 14:36] LABS: CK (CPK) Less than 9 U/L (30-200); Magnesium 1.5 mg/dL (1.6-2.6)
--- NOTE | 2017-12-22 14:38 | HP ---
PRIMARY CARE PHYSICIAN: Patient is city call admission. His primary care physician is in [place], [place]. PRIMARY ONCOLOGIST: Dr. Scott. REASON FOR ADMISSION: Intractable cancer pain. HISTORY OF PRESENT ILLNESS: A 73-year-old male who has recent diagnosis of soft tissue sarcoma. He was diagnosed with this condition in 05/2017 after biopsy report. Patient found mass in 05/2017 and after that pathology report consistent with soft tissue sarcoma. Patient was kept on chemotherapy an d he had some improvement in his soft tissue mass. Patient did not tolerated Taxol chemotherapy iris use of recurrent nausea, vomiting, diarrhea, and with dehydration. 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 The patient is kept on gemcitabine since 10/2017. He also has underlyin g malignant pleural effusion as well as ascites. 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 Patient's new chemotherapy started recently which is given every 3 weeks. A week ago, on Wednesday, he had last dose of chemotherapy with gemcitabine and since then patient is having diffuse body pain. H is pain intensity is about 10/10. The patient's oral pain medication was not working. Patient is mo stly bed bound. He is not able to ambulate because of pain. Since last , patient is only re maining in bed. He was also not eating and drinking well. He denies any vomiting, but he feels naus ea. He denies any diarrhea. He denies any constipation. He does have increasing lower extremity ed susi which is improving after starting Lasix. Patient also has abdominal distention. He feels dyspne a on exertion. He feels fatigued and tired. He denies any chest pain. He denies any cough, pleurit ic chest pain. He denies any syncope. He denies any fall. He denies any fever or chills. He denie s any UTI symptoms. In his stump, patient feels overall very shit. REVIEW OF SYSTEMS: The following complete review of systems was negative, unless otherwise mentioned in the HPI or below: Constitutional: Weight loss or gain, ability to conduct usual activities. Skin: Rash, itching. Eyes: Double vision, pain. ENT/Mouth: Nose bleeding, neck stiffness, pain, tenderness. Cardiovascular: Palpitations, dyspnea on exertion, orthopnea. Respiratory: Shortness of breath, wheezing, cough, hemoptysis, fever or night sweats. Gastrointestinal: Poor appetite, abdominal pain, heartburn, nausea, vomiting, constipation, or diarr hea. Genitourinary: Urgency, frequency, dysuria, nocturia. Musculoskeletal: Pain, swelling. Neurologic/Psychiatric: Anxiety, depression. Allergy/Immunologic: Skin rash, bleeding tendency. Please see my HPI for pertinent positive and negative. All other review of systems reviewed and nega tive except as mentioned in the HPI. ALLERGIES: No known drug allergy. CURRENT HOME MEDICATIONS: [place] 5 one or two tablets q.6 hourly p.r.n., Lasix 20 mg p.o. daily. 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 PAST SURGICAL HISTORY: Paracentesis and appendicectomy. PAST PSYCHIATRIC HISTORY: Reviewed and negative. SOCIAL HISTORY: The patient is a former smoker. He drinks alcohol, few beers daily basis, but for l ast 1 or 2 week he has not been drinking any alcohol. He denies any smoking. He denies any other il licit drug abuse. He is a former smoker. FAMILY HISTORY: No strong family history of premature coronary artery disease, stroke or cancer. EMERGENCY ROOM COURSE: Patient is given aspirin 324 mg, potassium chloride 40 mEq, morphine 4 mg x2 and IV fluid. PHYSICAL EXAMINATION: VITAL SIGNS: On arrival, blood pressure 121/65, pulse 77, respiratory rate 18, temperature 97.8, sat uration 100% on room air, and weight 102.06 kilograms. GENERAL: Patient is currently alert, awake, chronically ill, no obvious acute distress. HEAD: Normocephalic, atraumatic. EYES: Pupils round, reactive to light. Extraocular muscle intact. ENT: Oropharynx within normal limits. Moist mucous membranes. No oral lesion, no pharyngeal erythe ma, no exudate. NECK: Supple, no JVD, no thyromegaly, no carotid bruits. LUNGS: No obvious rhonchi or rales and no wheezing. Air entry was normal, though air entry reduced at the base. CARDIAC: S1, S2 regular, soft systolic murmur present at parasternal area. No gallop, no rub. ABDOMEN: Ascites present. Bowel sounds present, nontender, nondistended. No organomegaly, no mass, no suprapubic tenderness. BACK: On examination, patient does have soft tissue mass on the right flank. No CVA tenderness. EXTREMITIES: Upper extremity; passive movement of all joints are normal. Lower extremity; +4 pittin g edema noted in both lower extremities. No calf tenderness. SKIN: No skin rash other than old bruits. HEMATOLOGICAL SYSTEM: No lymphadenopathy. PSYCHIATRIC: Normal affect. NEUROLOGIC: Nonfocal examination. The patient moves all 4 limbs. Plantar bilateral flexor. PSYCHIATRIC: Normal affect. IMAGING DATA AND SIGNIFICANT LABORATORY DATA: 1. EKG showing normal sinus rhythm, nonspecific ST-T changes, slightly prolonged QT interval. 2. Echocardiography recently done showed normal EF, pulmonary hypertension, moderate tricuspid regur gitation, and moderate pulmonary regurgitation. 3. CBC: WBC 1.3, hemoglobin 10.4, MCV 116, platelet 14, bandemia. INR 1.3. 4. BMP: Sodium 132, potassium 3.1, chloride 94, carbon dioxide 27, BUN 13, creatinine 0.54, glucose 75, calcium 7.5, lactic acid 3.3, bilirubin 1.4, AST 8, ALT 7, alkaline phosphatase is 132, albumin 1.9, protein 4.6, CK-MB 0.6, troponin 0.105. ASSESSMENT AND PLAN/IMPRESSION: 1. Diffuse intractable cancer pain, suspecting medication induced pain from chemotherapy. Gemcitabi ne can cause this type of cancer pain. At this point for supportive treatment, patient will be given morphine 4 mg every 3 hourly p.r.n. basis. Palliative Care Team will be consulted. Oncology Team w ill be consulted. 2. 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 Oncology will be consulted. The patient is due for chemotherapy in next couple of weeks. 3. Hyponatremia likely due to hypoalbuminemia and volume depletion. 4. Hypokalemia, likely due to poor p.o. intake. The patient will be given potassium supplementation . 5. Lactic acidosis, rule out infection. We will check urinalysis. We will obtain chest x-ray. We will start empiric antibiotic therapy with Rocephin 1 gram q.24 hours. We will repeat lactic acid to parker. 6. Severe hypoalbuminemia, likely due to cancer disease. Because of that, patient has anasarca. Th e patient will be given albumin daily. 7. Elevated troponin, likely due to demand ischemia. We will do serial cardiac enzymes x3 to rule o ut acute coronary syndrome. Patient will be given aspirin 81 mg p.o. daily. Recently, echocardiogra phy showed normal EF with pulmonary hypertension and moderate tricuspid and pulmonary regurgitation. 8. Pancytopenia, likely due to chemotherapy. We will continue with folic acid and vitamin B12 thera py while in hospital. We will provide transfusional support p.r.n. basis. 9. Macrocytic anemia. Patient will be kept on folic acid and vitamin B12 therapy. 10. Thrombocytopenia. We will repeat platelet count tomorrow and provide platelet transfusion as ne eded basis. We will avoid heparin products because of low platelet count. 11. Anasarca. Patient has hypoalbuminemia that contributes anasarca with lower extremity edema, asc ites, and pleural effusion. The patient will be given diuretic therapy as tolerated and will replace electrolytes as needed basis. We will check magnesium and phosphorus level and replace electrolytes as needed basis. 12. Deep venous thrombosis prophylaxis, sequential compression device boots. 13. Gastrointestinal prophylaxis, Pepcid 20 mg p.o. b.i.d. 14. Code status: The patient is FULL CODE. Patient's son is surrogate decision maker. Disposition plan based on clinical course. We are expecting patient's stay in hospital more than 2 m idnights. Plan of care discussed with the patient and family member at bedside in the emergency room in detail.
[2017-12-22] MEDS ORDERED: Sodium Chloride 0.65% Nasal 44 ML BOT EA NARE PRN (15:46)
[2017-12-22] MEDS ORDERED: Chloraseptic Spray 180 ml Bottle PO PRN (15:46)
[2017-12-22] MEDS ORDERED: Ondansetron ODT 4 MG TAB PO PRN (15:46)
[2017-12-22] MEDS ORDERED: Loperamide HCl 2 MG CAP PO PRN (15:46)
[2017-12-22] MEDS ORDERED: Diabetic Tussin 200 MG/10 ML UDCUP PO PRN (15:46)
[2017-12-22] MEDS ORDERED: hydrALAZINE 20 MG/ML VIAL SLOW IVP PRN (15:46)
[2017-12-22] MEDS ORDERED: Senokot 8.6 MG TAB PO PRN (15:46)
[2017-12-22] MEDS ORDERED: Loratadine 10 MG TAB PO PRN (15:46)
[2017-12-22] MEDS ORDERED: Zolpidem Tartrate 5 MG TAB PO PRN (15:46)
[2017-12-22] MEDS ORDERED: cefTRIAXone\\ROCEPHIN 1 GM in Sodium Chloride 0.9% 100 ML IVPB SCH (15:46)
[2017-12-22] MEDS ORDERED: Eucerin (Mineral Oil/Petrolatum,White) 30 gm Jar TOP PRN (15:46)
[2017-12-22] MEDS ORDERED: Acetaminophen 325 MG TAB PO PRN (15:46)
[2017-12-22] MEDS ORDERED: Artificial Tears 18 DROP/0.9 ML EA EYE PRN (15:46)
[2017-12-22] MEDS ORDERED: Mag-Al 1200 mg/1200 mg/30 ML UDCUP PO PRN (15:46)
[2017-12-22] MEDS ORDERED: Milk Of Magnesia 30 ML UDCUP PO PRN (15:46)
[2017-12-22 16:10] LABS: Lactic Acid 3.9 mmol/L (0.5-2.2)
[2017-12-22] MEDS ORDERED: Potassium Phosphate 30 MMOL in Sodium Chloride 0.9% 500 ML IVPB SCH (16:45)
[2017-12-22] MEDS ORDERED: Magnesium Sulfate 4 GM in Sodium Chloride 0.9% 250 ML 250 ML IVPB SCH (16:45)
--- NOTE | 2017-12-22 16:57 | RAD ---
PORTABLE CHEST: History: Body aches. Lactic acidosis. History of soft tissue sarcoma. Comparison: 06-17-17 FINDINGS: Mass density in the left upper lung is again seen and unchanged. There is a right hilar mass density which is poorly identified on today's exam due to poor inspiration. There is new hazy infiltrative changes in the right upper lung today, worrisome for infectious infilt rate. There is evidence of small bilateral effusions and poor inspiration degrades the study. IMPRESSION: Question new inflammatory infiltrate in the right upper lung. Mass densities and small effusions as d escribed. POS: [facility]
--- NOTE | 2017-12-22 17:47 | CON ---
DATE OF CONSULTATION: 12/22/2017 REASON FOR CONSULTATION: Sarcoma. HISTORY OF PRESENT ILLNESS: Mr. Manriquez is a pleasant 72-year-old gentleman who has stage 4 sarcoma . He recently progressed on gemcitabine and received his first dose of doxorubicin on 12/13/2017. O ed the last few days, he has had increasing nausea and weakness. He presented to the emergency room for evaluation. He had a CBC drawn, which showed a white count of 1.3, hemoglobin of 10.4 and a gilberto telet count of 14,000. His potassium was low at 3.1. He was repleted in the emergency room and admi tted for dehydration. The patient received a Neulasta kit after chemotherapy. He denies any chest p ain or shortness of breath, occasional abdominal discomfort. No diarrhea or constipation. He states the pain in his sarcoma which is on his right flank has significantly improved with one dose of Eboni amycin. PAST MEDICAL HISTORY: 1. Stage IV sarcoma. 2. Malignant ascites. 3. History of cryptosporidium diarrhea. 4. Hypertension. PAST SURGICAL HISTORY: 1. MediPort placement. 2. Appendectomy. ALLERGIES: No known drug allergies. HOME MEDICATIONS: 1. Lasix 40 mg daily. 2. Hydrocodone p.r.n. FAMILY HISTORY: Noncontributory. SOCIAL HISTORY: . Has two children. He lives alone. No alcohol, tobacco or illicit drug us e. REVIEW OF SYSTEMS: Twelve point review of systems is negative except for noted in HPI. PHYSICAL EXAMINATION: VITAL SIGNS: Temperature is 97.8, pulse is 98, respiratory rate 20, BP is 136/63, he is 99% on 2 lit ers nasal cannula. GENERAL: Chronically ill-appearing male in no acute distress. HEENT: Normocephalic, atraumatic. Pupils equal and reactive to light. NECK: Supple. CARDIOVASCULAR: Regular rate and rhythm. LUNGS: Clear. ABDOMEN: Soft, nontender, bowel sounds are positive. EXTREMITIES: No clubbing, cyanosis or edema. SKIN: No rash. He does have a large soft tissue mass on his right flank. HEMATOLOGICAL: He has ecchymosis and scattered bruising on his face, arms, and trunk. NEUROLOGIC: Nonfocal. PSYCHIATRIC: The patient is alert and oriented and appropriate. PERTINENT LABORATORY DATA AND X-RAYS: Current WBCs are 1.3, hemoglobin 10.4, hematocrit 32.3, platel et count 14,000, neutrophils 4%, 4% bands, 68% lymphocytes, 24% monocytes. PT is 16.2, INR is 1.3, P TT is 39.4. Sodium is 132, potassium 3.1, chloride 94, CO2 is 27, BUN 13, creatinine 0.54. Lactic a abhi is 3.9, calcium 7.5, phosphorus 2.0, magnesium 1.5, bilirubin is 1.4, AST is 8, ALT 7, alkaline p hosphatase is 132. Troponin is 0.105. Serum total protein is 4.6, albumin 1.9, globulin 2.7. Radio logy per HPI. ASSESSMENT: 1. Stage IV sarcoma status post cycle 1 of Adriamycin. 2. Pancytopenia secondary to #1. 3. Hypokalemia. 4. Dehydration. DISCUSSION: The patient has been started on IV fluids. His potassium has been repleted. He does se em to have improved with one dose of Adriamycin. However, he is living alone and it is unclear if he is going to be able to continue this during his treatment. This was discussed with both his childre n at bedside. The patient has stated in the past that he would like to be DNR. We will consult the palliative care team for their assistance and case management for possible placement and to make furt her consult, we will follow his hospital course closely.
[2017-12-22] MEDS: cefTRIAXone\\ROCEPHIN 1 GM, Syringe 0.4 ML in Sterile Water 9.6 ML SLOW IVP SCH (18:27)
[2017-12-22] MEDS: Potassium Chloride 20 MEQ TAB PO SCH (18:29)
[2017-12-22 19:11] LABS: CKMB 1.2 ng/mL (0-6.6); Troponin I 0.119 ng/mL (< 0.028)
[2017-12-22] MEDS ORDERED: Prevnar 13-Val Conj/PF 0.5 ML SYRINGE IM ONE (21:00)
[2017-12-22 21:12] LABS: CKMB 1.5 ng/mL (0-6.6)
[2017-12-22] MEDS: Famotidine 20 MG TAB PO SCH (21:31)
[2017-12-22] MEDS: Sodium Chloride 0.9% 1,000 ML IV SCH ×2 (21:31→21:48)
[2017-12-23] MEDS: Furosemide 20 MG/2 ML VIAL SLOW IVP SCH ×2 (05:05→13:46)
[2017-12-23 06:12] LABS: Hemoglobin 9.6 g/dL (14.0-18.0); Mean Corpuscular HGB CONC 31.8 g/dL (32.0-36.0); Mean Corpuscular Hemoglobin 37.2 pg (27.0-31.0); Mean Platelet Volume 12.1 fL (7.4-10.4); Platelet Count 17 thou/uL (130-400); RBC Distribution Width 15.4 % (11.5-14.5); Red Blood Cell (RBC) Count 2.58 mill/uL (4.70-6.10)
[2017-12-23 06:17] LABS: Lactic Acid 2.9 mmol/L (0.5-2.2)
[2017-12-23 06:27] LABS: White Blood Cell (WBC) Count 1.7 thou/uL (4.8-10.8)
[2017-12-23 06:28] LABS: Band 8 % (5-11); Lymphocytes 53 % (21-51); MDiff Complete? YES; Monocytes 18 % (0-10); Neutrophil 21 % (42-75); PLT Morphology Comment Appears Decreased
[2017-12-23 06:38] LABS: ALT (SGPT) 8 U/L (8-55); AST (SGOT) 7 U/L (5-34); Albumin 1.9 g/dL (3.4-4.8); Alkaline Phosphatase 147 U/L (40-150); Anion Gap 15 mmol/L (10-20); BUN (Urea Nitrogen) 16 mg/dL (8.4-25.7); Bilirubin, Total 1.1 mg/dL (0.2-1.2); Calc. Creatinine Clearance 0 mL/min (70-130); Calcium 7.4 mg/dL (7.8-10.44); Carbon Dioxide 24 mmol/L (23-31); Chloride 98 mmol/L (98-107); Estimated GFR-MDRD Greater than 90; Globulin 2.5 g/dL (2.4-3.5); Glucose 81 mg/dL (83-110); Potassium 3.9 mmol/L (3.5-5.1); Protein, Total 4.4 g/dL (5.8-8.1); Sodium 133 mmol/L (136-145)
[2017-12-23 09:35] LABS: Magnesium 1.9 mg/dL (1.6-2.6); Phosphorus 3.1 mg/dL (2.3-4.7)
[2017-12-23] MEDS: Folic Acid 1 MG TAB PO SCH (10:16)
[2017-12-23] MEDS: Famotidine 20 MG TAB PO SCH ×2 (10:16→20:39)
[2017-12-23] MEDS: Potassium Chloride 20 MEQ TAB PO SCH ×2 (10:16→17:40)
[2017-12-23] MEDS: Albumin 25% 25 GM/100 ML BOT IVPB SCH (10:16)
[2017-12-23] MEDS: Cyanocobalamin (Vitamin B-12) 1,000 MCG TAB PO SCH (10:17)
[2017-12-23 11:21] VITALS: BMI 29.5
--- NOTE | 2017-12-23 11:28 | PDOC.PN ---
- Subjective Encounter Start Date: 12/23/17 Encounter Start Time: 07:00 -: old records requested/rev pt is weak, his pain is controlled, he has no fever, Patient seen and examined. No overnight events - Objective Resuscitation Status: Resuscitation Status FULL:Full Resuscitation MAR Reviewed: Yes Vital Signs & Weight: Vital Signs (12 hours) Temp Pulse Resp BP Pulse Ox 12/23/17 08:00 97.5 F L 89 20 112/59 L 97 12/23/17 04:00 98.1 F 92 16 124/62 99 12/22/17 23:47 97.9 F 91 16 123/60 100 Weight Weight 223 lb 12.8 oz I&O: 12/22/17 12/23/17 12/24/17 06:59 06:59 06:59 Intake Total 2120 Output Total 325 Balance 1795 Result Diagrams: 12/23/17 05:48 12/23/17 05:48 Phys Exam - Physical Examination Constitutional: NAD HEENT: PERRLA, moist MMs, sclera anicteric Neck: no JVD, supple Respiratory: no wheezing, no rales, no rhonchi Cardiovascular: RRR, no significant murmur, no rub Gastrointestinal: soft, non-tender, no distention, positive bowel sounds Musculoskeletal: pulses present, edema present Neurological: non-focal, normal sensation, moves all 4 limbs Lymphatic: no nodes Psychiatric: normal affect, A&O x 3 Skin: no rash, normal turgor Dx/Plan (1) Abnormal blood electrolyte level Code(s): E87.8 - OTH DISORDERS OF ELECTROLYTE AND FLUID BALANCE, NEC Status: Acute Comment: hyponatremia, hypokalemia, hypophosphatemia and hypomagnesemia electrolytes replaced (2) Anasarca Code(s): R60.1 - GENERALIZED EDEMA Status: Acute Comment: due to low albumin (3) Elevated troponin Code(s): R74.8 - ABNORMAL LEVELS OF OTHER SERUM ENZYMES Status: Acute Comment: due to demand ischemia (4) Hypoalbuminemia Code(s): E88.09 - OTH DISORDERS OF PLASMA-PROTEIN METABOLISM, NEC Status: Acute (5) Intractable pain Code(s): R52 - PAIN, UNSPECIFIED Status: Acute Comment: due to cancer and chemotherapy related pain (6) Lactic acidosis Code(s): E87.2 - ACIDOSIS Status: Acute (7) Pancytopenia due to antineoplastic chemotherapy Code(s): D61.810 - ANTINEOPLASTIC CHEMOTHERAPY INDUCED PANCYTOPENIA; T45.1X5A - ADVERSE EFFECT OF ANTINEOPLASTIC AND IMMUNOSUP DRUGS, INIT Status: Acute (8) Thrombocytopenia Code(s): D69.6 - THROMBOCYTOPENIA, UNSPECIFIED Status: Acute (9) Alcohol abuse Code(s): F10.10 - ALCOHOL ABUSE, UNCOMPLICATED Status: Chronic (10) Cholelithiases Code(s): K80.20 - CALCULUS OF GALLBLADDER W/O CHOLECYSTITIS W/O OBSTRUCTION Status: Chronic Qualifiers: Cholelithiasis location: gallbladder Cholecystitis acuity: chronic Biliary obstruction: without biliary obstruction (11) HTN (hypertension) Code(s): I10 - ESSENTIAL (PRIMARY) HYPERTENSION Status: Chronic (12) Macrocytic anemia Code(s): D53.9 - NUTRITIONAL ANEMIA, UNSPECIFIED Status: Chronic (13) Metastatic sarcoma Code(s): C79.89 - SECONDARY MALIGNANT NEOPLASM OF OTHER SPECIFIED SITES Status : Chronic Comment: mets to lung and adrenal (14) Right flank mass Code(s): R19.00 - INTRA-ABD AND PELVIC SWELLING, MASS AND LUMP, UNSP SITE Status: Chronic Comment: soft tissue sarcoma - Plan cont current plan of care, continue antibiotics, PT/OT, social service assistant * continue lasix * continue albumin daily * monitor labs and replace electrolytes as needed * medication reviewed as below * symptomatic treatment * oncology following * continue rocephin * may need placement * palliative care consult Review of Systems - Review of Systems Constitutional: weakness. negative: fever, chills, sweats, malaise, other ENT: negative: Ear Pain, Ear Discharge, Nose Pain, Nose Discharge, Nose Congestion, Mouth Pain, Mouth Swelling, Throat Pain, Throat Swelling, Other Respiratory: negative: Cough, Dry, Shortness of Breath, Hemoptysis, SOB with Excertion, Pleuritic Pain, Sputum, Wheezing Cardiovascular: edema. negative: chest pain, palpitations, orthopnea, paroxysmal nocturnal dyspnea, light headedness, other Gastrointestinal: negative: Nausea, Vomiting, Abdominal Pain, Diarrhea, Constipation, Melena, Hematochezia, Other Genitourinary: negative: Dysuria, Frequency, Incontinence, Hematuria, Retention , Other Musculoskeletal: Other (diffuse pain). negative: Neck Pain, Shoulder Pain, Arm Pain, Back Pain, Hand Pain, Leg Pain, Foot Pain Skin: negative: Rash, Lesions, Slava, Bruising, Other - Medications/Allergies Allergies/Adverse Reactions: Allergies Allergy/AdvReac Type Severity Reaction Status Date / Time No Known Drug Allergies Allergy Verified 05/11/17 21:29 Medications: Current Medications Acetaminophen (Tylenol) 650 mg PO Q4H PRN PRN Reason: Headache/Fever or Pain Hydrocodone Bitart/Acetaminophen ([place] 10/325) 1 tab PO Q4H PRN PRN Reason: Moderate Pain (4-6) Al Hydroxide/Mg Hydroxide (Maalox) 30 ml PO Q6H PRN PRN Reason: Heartburn or Indigestion Albumin Human (Albumin 25%) 25 gm IVPB DAILY [facility] Stop: 12/25/17 09:01 Last Admin: 12/23/17 10:16 Dose: 25 gm Artificial Tears (Tears Naturale) 0 drop EA EYE PRN PRN PRN Reason: Dry Eyes Aspirin (Aspirin Chewable) 81 mg PO DAILY [facility] Last Admin: 12/23/17 10:16 Dose: 81 mg Cyanocobalamin (Vitamin B-12) 1,000 mcg PO DAILY [facility] Last Admin: 12/23/17 10:17 Dose: 1,000 mcg Famotidine (Pepcid) 20 mg PO BID [facility] Last Admin: 12/23/17 10:16 Dose: 20 mg Folic Acid (Folvite) 1 mg PO DAILY [facility] Last Admin: 12/23/17 10:16 Dose: 1 mg Furosemide (Lasix) 20 mg SLOW IVP 0600,1400 [facility] Last Admin: 12/23/17 05:05 Dose: 20 mg Guaifenesin (Robitussin Sf) 200 mg PO Q4H PRN PRN Reason: Cough Hydralazine HCl (Apresoline) 10 mg SLOW IVP Q4H PRN PRN Reason: Systolic BP > 180 Ceftriaxone Sodium 1 gm/ (Syringe 0.4 ml/ Sterile Water) 10 mls @ 120 mls/hr SLOW IVP 1700 [facility] Last Admin: 12/22/17 18:27 Dose: 10 mls Loperamide HCl (Imodium) 2 mg PO PRN PRN PRN Reason: Diarrhea/Loose Stools Loratadine (Claritin) 10 mg PO DAILYPRN PRN PRN Reason: Sinus Symptoms Magnesium Hydroxide (Milk Of Magnesium) 30 ml PO DAILYPRN PRN PRN Reason: Constipation Mineral Oil/White Petrolatum (Eucerin Cream) 0 gm TOP BIDPRN PRN PRN Reason: Dry Skin Morphine Sulfate (Morphine) 4 mg SLOW IVP Q3H PRN PRN Reason: Severe Pain (7-10) Ondansetron HCl (Zofran Odt) 4 mg PO Q6H PRN PRN Reason: Nausea/Vomiting Ondansetron HCl (Zofran) 4 mg IVP Q6H PRN PRN Reason: Nausea/Vomiting Phenol (Chloraseptic [place]ana 180 Ml Bot) 0 ml PO PRN PRN PRN Reason: Sore Throat Potassium Chloride (K-Dur) 20 meq PO BID-[facility] Last Admin: 12/23/17 10:16 Dose: 20 meq Senna (Senokot) 2 tab PO HSPRN PRN PRN Reason: Constipation Sodium Chloride ([place] Nasal [place] 0.65%) 0 ml EA NARE QIDPRN PRN PRN Reason: Nasal Congestion Sodium Chloride (Flush - Normal Saline) 10 ml IVF Q12HR [facility] Last Admin: 12/23/17 10:18 Dose: 10 ml Sodium Chloride (Flush - Normal Saline) 10 ml IVF PRN PRN PRN Reason: Saline Flush Zolpidem Tartrate (Ambien) 5 mg PO HSPRN PRN PRN Reason: Insomnia
[2017-12-23] MEDS: Sodium Chloride 0.9% 1,000 ML IV SCH (13:06)
[2017-12-23] MEDS: Ondansetron HCl/PF 4 MG/2 ML Vial IVP PRN (13:46)
[2017-12-23] MEDS: HYDROcodone/Acetaminophen 10/325 mg Tablet PO PRN (15:57)
[2017-12-23] MEDS: cefTRIAXone\\ROCEPHIN 1 GM, Syringe 0.4 ML in Sterile Water 9.6 ML SLOW IVP SCH (17:39)
[2017-12-23] MEDS ORDERED: CEFAZOLIN/Water 2 GM/20 ML SYRINGE SLOW IVP SCH (18:00)
--- NOTE | 2017-12-23 19:34 | CON ---
DATE OF CONSULTATION: 12/23/2017 REASON FOR CONSULTATION: Need for chemotherapy access. HISTORY OF PRESENT ILLNESS: Mr. Manriquez is a 73-year-old man known to me from previous biopsy done in clinic. He has a soft tissue sarcoma of the right flank, which became resistant to his initial ch emotherapy. I did some additional core biopsies for tumor markers and genetics. He was started on d oxorubicin late last month and has developed nausea, weakness, and intractable diffuse pain. He was admitted through the emergency room. He was found to be pancytopenic with a white count of 1.3, hemo globin of 10.4 and a platelet count of 14,000. He was also hypokalemic and hyponatremic. He did rec eive Neulasta after his chemotherapy. He had malignant ascites requiring paracentesis when his sarco ma progressed prior to his rebiopsy and new chemotherapy regimen. Currently, his abdomen is not both ering him and he also feels like the mass on his side has gone down. He denies any GI complaints. PAST MEDICAL HISTORY: Stage IV sarcoma with malignant ascites, hypertension and history of cryptospo ridium diarrhea. PAST SURGICAL HISTORY: Appendectomy and paracentesis. ALLERGIES: He has no known drug allergies. OUTPATIENT MEDICATIONS: Include Lasix and hydrocodone. FAMILY HISTORY: Noncontributory. SOCIAL HISTORY: He does not smoke, drink or use illicit drugs. He has 2 children, but lives alone. REVIEW OF SYSTEMS: A ten-system review of systems is negative except per HPI and the following. He has persistent severe lower extremity edema. This is better compared to before his paracentesis, but is still quite severe, making it difficult for him to ambulate or keep his shoes on. He has also de veloped some edema in his upper arms, left greater than right. PHYSICAL EXAMINATION: VITAL SIGNS: The patient has been afebrile since his admission. Heart rate 87, respirations 20, 95% saturated on 1.5 liters nasal cannula, blood pressure 117/63. GENERAL: Reveals a tired-appearing elderly gentleman, in no acute distress. HEENT: Unremarkable. NECK: Supple, without significant lymphadenopathy or thyroid nodules. HEART: Regular in its rate and rhythm without murmurs, rubs or gallops. LUNGS: Clear to auscultation. ABDOMEN: Soft and nontender, mildly distended. I do not appreciate any masses or hernias. His righ t flank mass is significantly smaller and softer compared to at the time of his biopsies before start ing his most recent chemotherapy regimen. EXTREMITIES: Warm and well perfused, but he has moderate to severe bilateral lower extremity edema a nd has new onset of dependent edema in his upper arm greater than lower arm, which is worse on the le ft side. He has some bruising in his arm as well, although he denies any IVs or lab draws on the lef t side. NEUROLOGIC: No focal deficits. He is alert, oriented, and appropriate. LABORATORY DATA AND IMAGING: White count is 1.7 with 21% neutrophils and 8% bands, platelet count is 17 and hematocrit 30. PTT is 39 and INR is 1.3. Electrolytes show slightly low sodium of 133, pota ssium is back up to normal at 3.9, BUN and creatinine are 16 and 0.54, glucose is 81. Lactic acid is 2.9, which is down from 3.9 and albumin is 1.9. Chest x-ray shows some small effusions and some pos sible haziness in the right upper lung and a mass in the left upper lung, which is unchanged. He has a right hilar mass, which is not well seen on this x-ray. ASSESSMENT AND PLAN: Metastatic sarcoma to lungs and abdomen admitted for intractable pain following institution of his newest round of chemotherapy. Clinically, he is responding to the chemotherapy, but he requires a MediPort placement for access. He is pancytopenic and on neutropenic precautions c urrently. His blood and urine cultures are negative. He is on scheduled ceftriaxone, but will requi re some Ancef electronic transaction implementer to the OR. In addition, because of his low platelet count, I have ordered some platelets to be available in the operating room as well to reduce bleeding risk. The MediPort will likely be placed in the internal jugular position with ultrasound guidance. The procedure of MediPor t placement was discussed with the patient. The inherent risks were also discussed. These include, but are not limited to bleeding, infection, risks of anesthesia, hemothorax, pneumothorax, and need f or further procedures. He understands and accepts these risks and wishes to proceed. Due to schedul ing conflicts, Dr. Hunter will be performing the procedure and the patient is aware of this. All of his questions were answered. The patient has persistent lower extremity edema, which is probably mu ltifactorial, but I have ordered bilateral lower extremity ultrasound to evaluate for possible DVT. I think that it is unlikely to be the cause of this edema, however.
--- NOTE | 2017-12-23 21:21 | ULT ---
BILATERAL LOWER EXTREMITY VENOUS DUPLEX ULTRASOUND INCLUDING COLOR AND SPECTRAL DOPPLER IMAGIN12/23/17 HISTORY: 73-year-old male with history of bilateral leg edema. Exam performed from groin to ankle including visualized great saphenous, common femoral, superficial femoral or profunda femoral, popliteal, trifurcation, and posterior tibial vein regions. There is int raluminal thrombus involving the right popliteal vein with possible minimal incomplete obstructing th rombus extending into the distal superficial femoral vein. There is noncompressibility at this level. The left lower extremity deep venous system is normal without evidence for deep venous thrombosis. IMPRESSION: Focal area of deep venous thrombosis primarily involving the right popliteal vein with probable part ial thrombus extension into the distal right superficial femoral vein. Findings were discussed with Lily, the nurse, at 7:38 p.m. who indicated she would contact the physici anitra. POS: [facility]
[2017-12-24] MEDS: HYDROcodone/Acetaminophen 10/325 mg Tablet PO PRN (01:06)
[2017-12-24] MEDS: Furosemide 20 MG/2 ML VIAL SLOW IVP SCH ×2 (05:07→16:51)
[2017-12-24 05:43] LABS: Hemoglobin 8.9 g/dL (14.0-18.0); Mean Corpuscular HGB CONC 32.6 g/dL (32.0-36.0); Mean Corpuscular Hemoglobin 37.3 pg (27.0-31.0); Mean Platelet Volume 10.8 fL (7.4-10.4); Platelet Count 21 thou/uL (130-400); RBC Distribution Width 15.4 % (11.5-14.5); Red Blood Cell (RBC) Count 2.38 mill/uL (4.70-6.10); White Blood Cell (WBC) Count 1.6 thou/uL (4.8-10.8)
[2017-12-24 06:05] LABS: Band 12 % (5-11); Dohle Bodies SLIGHT; Eosinophils 2 % (0-10); Lymphocytes 26 % (21-51); MDiff Complete? YES; Macrocytosis MODERATE=16-30 cells (100X) (0-5/hpf); Monocytes 12 % (0-10); Neutrophil 48 % (42-75); PLT Morphology Comment Appears Decreased; Toxic Granulation SLIGHT
[2017-12-24] MEDS: Famotidine 20 MG TAB PO SCH ×2 (09:04→20:14)
[2017-12-24] MEDS: Potassium Chloride 20 MEQ TAB PO SCH ×2 (09:04→16:51)
[2017-12-24] MEDS: Folic Acid 1 MG TAB PO SCH (09:04)
[2017-12-24] MEDS: Cyanocobalamin (Vitamin B-12) 1,000 MCG TAB PO SCH (09:04)
[2017-12-24] MEDS: Albumin 25% 25 GM/100 ML BOT IVPB SCH (09:04)
--- NOTE | 2017-12-24 10:55 | PDOC.PN ---
- Subjective Encounter Start Date: 12/24/17 Encounter Start Time: 07:00 Patient seen and examined. No new complaints. No overnight events code status addressed and he wants to try in case of arrest to live but he does not want to be on ventilator forever. - Objective Resuscitation Status: Resuscitation Status FULL:Full Resuscitation MAR Reviewed: Yes Vital Signs & Weight: Vital Signs (12 hours) Temp Pulse Resp BP Pulse Ox 12/24/17 08:00 97.9 F 88 22 H 12/24/17 07:15 97.9 F 88 22 H 117/60 93 L 12/24/17 03:53 97.5 F L 87 16 115/60 97 12/23/17 23:39 97.8 F 85 16 123/63 97 Weight Admit Weight 268 lb 6.4 oz Weight 223 lb 12.8 oz I&O: 12/23/17 12/24/17 12/25/17 06:59 06:59 06:59 Intake Total 2120 1650 0 Output Total 325 1050 Balance 1795 600 0 Result Diagrams: 12/24/17 04:38 12/23/17 05:48 Radiology Reviewed by me: Yes (US leg- DVT) Phys Exam - Physical Examination Constitutional: NAD HEENT: PERRLA, moist MMs, sclera anicteric Neck: no JVD, supple Respiratory: no wheezing, no rales, no rhonchi Cardiovascular: RRR, no significant murmur, no rub Gastrointestinal: soft, non-tender, no distention, positive bowel sounds Musculoskeletal: edema present Neurological: non-focal Lymphatic: no nodes Psychiatric: normal affect Skin: normal turgor Deviation from normal: purpura Dx/Plan (1) Abnormal blood electrolyte level Code(s): E87.8 - OTH DISORDERS OF ELECTROLYTE AND FLUID BALANCE, NEC Status: Acute Comment: hyponatremia, hypokalemia, hypophosphatemia and hypomagnesemia electrolytes replaced (2) Anasarca Code(s): R60.1 - GENERALIZED EDEMA Status: Acute Comment: due to low albumin (3) Elevated troponin Code(s): R74.8 - ABNORMAL LEVELS OF OTHER SERUM ENZYMES Status: Acute Comment: due to demand ischemia (4) Hypoalbuminemia Code(s): E88.09 - OTH DISORDERS OF PLASMA-PROTEIN METABOLISM, NEC Status: Acute (5) Intractable pain Code(s): R52 - PAIN, UNSPECIFIED Status: Acute Comment: due to cancer and chemotherapy related pain (6) Lactic acidosis Code(s): E87.2 - ACIDOSIS Status: Acute (7) Pancytopenia due to antineoplastic chemotherapy Code(s): D61.810 - ANTINEOPLASTIC CHEMOTHERAPY INDUCED PANCYTOPENIA; T45.1X5A - ADVERSE EFFECT OF ANTINEOPLASTIC AND IMMUNOSUP DRUGS, INIT Status: Acute (8) Thrombocytopenia Code(s): D69.6 - THROMBOCYTOPENIA, UNSPECIFIED Status: Acute (9) Alcohol abuse Code(s): F10.10 - ALCOHOL ABUSE, UNCOMPLICATED Status: Chronic (10) Cholelithiases Code(s): K80.20 - CALCULUS OF GALLBLADDER W/O CHOLECYSTITIS W/O OBSTRUCTION Status: Chronic Qualifiers: Cholelithiasis location: gallbladder Cholecystitis acuity: chronic Biliary obstruction: without biliary obstruction (11) HTN (hypertension) Code(s): I10 - ESSENTIAL (PRIMARY) HYPERTENSION Status: Chronic (12) Macrocytic anemia Code(s): D53.9 - NUTRITIONAL ANEMIA, UNSPECIFIED Status: Chronic (13) Metastatic sarcoma Code(s): C79.89 - SECONDARY MALIGNANT NEOPLASM OF OTHER SPECIFIED SITES Status : Chronic Comment: mets to lung and adrenal (14) Right flank mass Code(s): R19.00 - INTRA-ABD AND PELVIC SWELLING, MASS AND LUMP, UNSP SITE Status: Chronic Comment: soft tissue sarcoma (15) DVT of popliteal vein Code(s): I82.439 - ACUTE EMBOLISM AND THROMBOSIS OF UNSPECIFIED POPLITEAL VEIN Status: Acute Qualifiers: Chronicity: acute Laterality: right Qualified Code(s): I82.431 - Acute embolism and thrombosis of right popliteal vein - Plan cont current plan of care, plan discussed w/ family, continue antibiotics, PT/OT , public health social worker, DVT proph w/SCDs * pt has DVT but anticoagulation is contraindicated due to low platelet count, so I discussed with pt and son about option of care and they agreed with IVC filter, will consult CT surgeon for that * today plan for mediport placement by surgeon for chemotherapy access. * pt decided to go for rehab on discharge * continue albumin and lasix * medication reviewed as below * symptomatic treatment Review of Systems - Review of Systems Constitutional: weakness. negative: fever, chills, sweats, malaise, other ENT: negative: Ear Pain, Ear Discharge, Nose Pain, Nose Discharge, Nose Congestion, Mouth Pain, Mouth Swelling, Throat Pain, Throat Swelling, Other Respiratory: negative: Cough, Dry, Shortness of Breath, Hemoptysis, SOB with Excertion, Pleuritic Pain, Sputum, Wheezing Cardiovascular: edema Gastrointestinal: negative: Nausea, Vomiting, Abdominal Pain, Diarrhea, Constipation, Melena, Hematochezia, Other Genitourinary: negative: Dysuria, Frequency, Incontinence, Hematuria, Retention , Other Musculoskeletal: Leg Pain. negative: Neck Pain, Shoulder Pain, Arm Pain, Back Pain, Hand Pain, Foot Pain, Other Skin: Bruising. negative: Rash, Lesions, Slava, Other - Medications/Allergies Allergies/Adverse Reactions: Allergies Allergy/AdvReac Type Severity Reaction Status Date / Time No Known Drug Allergies Allergy Verified 05/11/17 21:29 Medications: Current Medications Acetaminophen (Tylenol) 650 mg PO Q4H PRN PRN Reason: Headache/Fever or Pain Hydrocodone Bitart/Acetaminophen ([place] 10/325) 1 tab PO Q4H PRN PRN Reason: Moderate Pain (4-6) Last Admin: 12/24/17 01:06 Dose: 1 tab Al Hydroxide/Mg Hydroxide (Maalox) 30 ml PO Q6H PRN PRN Reason: Heartburn or Indigestion Albumin Human (Albumin 25%) 25 gm IVPB DAILY [facility] Stop: 12/25/17 09:01 Last Admin: 12/24/17 09:04 Dose: 25 gm Artificial Tears (Tears Naturale) 0 drop EA EYE PRN PRN PRN Reason: Dry Eyes Aspirin (Aspirin Chewable) 81 mg PO DAILY [facility] Last Admin: 12/24/17 09:20 Dose: Not Given Cefazolin Sodium (Ancef) 2 gm SLOW IVP ONCALL-OR [facility] Stop: 12/24/17 12:00 Cyanocobalamin (Vitamin B-12) 1,000 mcg PO DAILY [facility] Last Admin: 12/24/17 09:04 Dose: 1,000 mcg Famotidine (Pepcid) 20 mg PO BID [facility] Last Admin: 12/24/17 09:04 Dose: 20 mg Folic Acid (Folvite) 1 mg PO DAILY [facility] Last Admin: 12/24/17 09:04 Dose: 1 mg Furosemide (Lasix) 20 mg SLOW IVP 0600,1400 [facility] Last Admin: 12/24/17 05:07 Dose: 20 mg Guaifenesin (Robitussin Sf) 200 mg PO Q4H PRN PRN Reason: Cough Hydralazine HCl (Apresoline) 10 mg SLOW IVP Q4H PRN PRN Reason: Systolic BP > 180 Ceftriaxone Sodium 1 gm/ (Syringe 0.4 ml/ Sterile Water) 10 mls @ 120 mls/hr SLOW IVP 1700 [facility] Last Admin: 12/23/17 17:39 Dose: 10 mls Loperamide HCl (Imodium) 2 mg PO PRN PRN PRN Reason: Diarrhea/Loose Stools Loratadine (Claritin) 10 mg PO DAILYPRN PRN PRN Reason: Sinus Symptoms Magnesium Hydroxide (Milk Of Magnesium) 30 ml PO DAILYPRN PRN PRN Reason: Constipation Mineral Oil/White Petrolatum (Eucerin Cream) 0 gm TOP BIDPRN PRN PRN Reason: Dry Skin Morphine Sulfate (Morphine) 4 mg SLOW IVP Q3H PRN PRN Reason: Severe Pain (7-10) Ondansetron HCl (Zofran Odt) 4 mg PO Q6H PRN PRN Reason: Nausea/Vomiting Ondansetron HCl (Zofran) 4 mg IVP Q6H PRN PRN Reason: Nausea/Vomiting Last Admin: 12/23/17 13:46 Dose: 4 mg Phenol (Chloraseptic Dexter 180 Ml Bot) 0 ml PO PRN PRN PRN Reason: Sore Throat Potassium Chloride (K-Dur) 20 meq PO BID-[facility] Last Admin: 12/24/17 09:04 Dose: 20 meq Senna (Senokot) 2 tab PO HSPRN PRN PRN Reason: Constipation Sodium Chloride ([place] Nasal Dexter 0.65%) 0 ml EA NARE QIDPRN PRN PRN Reason: Nasal Congestion Sodium Chloride (Flush - Normal Saline) 10 ml IVF Q12HR [facility] Last Admin: 12/24/17 09:19 Dose: 10 ml Sodium Chloride (Flush - Normal Saline) 10 ml IVF PRN PRN PRN Reason: Saline Flush Zolpidem Tartrate (Ambien) 5 mg PO HSPRN PRN PRN Reason: Insomnia
[2017-12-24] MEDS ORDERED: Lidocaine 1% (PF) 30 ML VIAL ONE (12:51)
[2017-12-24] MEDS ORDERED: Iopamidol 370 76% 50 ML VIAL FS ONE (13:28)
--- NOTE | 2017-12-24 13:40 | OP ---
DATE OF PROCEDURE: 12/24/2017 PREOPERATIVE DIAGNOSIS: Popliteal deep venous thrombosis with contraindication to anticoagulation. POSTOPERATIVE DIAGNOSIS: Popliteal deep venous thrombosis with contraindication to anticoagulation. PROCEDURES: 1. Inferior vena cavogram. 2. Inferior vena cava filter placement -- TrapEase placed with its tip at the L1-L2 junction just be low the right renal vein. CONTRAST: 5 mL TOTAL FLUOROSCOPY TIME: 0.3 minutes. PROCEDURE IN DETAIL: After consent was obtained, the patient was brought to the seed analysis laboratory assistant, placed in supine position on seed analysis laboratory assistant table. Appropriate monitoring was placed. Groins were prepped and drape d in usual sterile fashion. Using ultrasound guidance, the area over the right common femoral vein w as anesthetized with 1% lidocaine. Percutaneous access common femoral vein was obtained using modifi ed Seldinger technique, the cavogram sheath was passed to the L2 vertebral body. Hand injected vena cavogram was performed. Inflow from the right renal vein was noted at L1-L2 junction which was the l owest renal vein. This was where the tip of the filter was positioned and deployed. Filter seated n icely. The patient tolerated procedure well. Sheath was removed and manual pressure held for hemost asis. The patient was transferred to day stay for MediPort placement by Dr. Hunter.
--- NOTE | 2017-12-24 13:57 | CON ---
DATE OF CONSULTATION: 12/24/2017 HISTORY OF PRESENT ILLNESS: Mr. Manriquez is a 73-year-old gentleman with widely metastatic abdominal sarcoma. He has been on chemotherapy. He presented with intractable abdominal pain. He, since raoul ng in the hospital, has had a venogram performed, which shows a partial popliteal thrombosis on the r ight with extension into the superficial femoral vein. He is unable to be anticoagulated currently. I have been asked to see him to place a vena caval filter. PAST MEDICAL HISTORY: 1. Stage 4 abdominal sarcoma. 2. Malignant ascites. 3. History of cryptosporidium diarrhea. 4. Hypertension. PAST SURGICAL HISTORY: 1. Appendectomy. 2. MediPort placement. ALLERGIES: None. HOME MEDICATIONS: 1. Lasix 40 mg every day. 2. Hydrocodone p.r.n. SOCIAL HISTORY: He is . He has 2 children. He lives alone. Does not use alcohol, tobacco, or other drugs. PHYSICAL EXAMINATION: GENERAL: This is a well-developed, well-nourished man, resting in bed with significant abdominal dis comfort. VITAL SIGNS: Height 6 feet 1 inches, weight is 223 pounds, BSA is 2.29, temperature is 98.3, pulse i s 90 and regular, blood pressure is 130/60. LUNGS: Clear bilaterally. HEART: Rhythm is regular, without murmur. ABDOMEN: Protuberant, but soft. EXTREMITIES: There is mild edema. ASSESSMENT AND PLAN: Right popliteal venous deep vein thrombosis. He cannot be anticoagulated curre ntly. I have discussed vena cava filter placement with him. He understands it is a permanent filter due to his current medical condition. We will plan to do this today prior to his Mediport placement .
[2017-12-24] MEDS ORDERED: Lidocaine 2% w/Epinephrine 1:200K 20 ML VIAL ONE (14:30)
[2017-12-24] MEDS ORDERED: Bupivacaine/Epinephrine 0.25% 30 ML VIAL ONE (14:30)
[2017-12-24] MEDS ORDERED: Lidocaine 2% 10 ML INJ ONE (14:32)
[2017-12-24] MEDS ORDERED: Fentanyl 100 MCG/2 ML VIAL ONE ×2 (14:35→14:47)
[2017-12-24] MEDS ORDERED: Midazolam HCl 2 mg/2 ml Vial ONE (14:47)
[2017-12-24] MEDS ORDERED: CEFAZOLIN/Water 2 GM/20 ML SYRINGE ONE (14:49)
[2017-12-24] MEDS ORDERED: PROPOFOL 200 MG/20 ML VIAL ONE (16:54)
[2017-12-24] MEDS ORDERED: Lidocaine 1% PF 5 ML VIAL ONE (16:54)
[2017-12-24] MEDS: cefTRIAXone\\ROCEPHIN 1 GM, Syringe 0.4 ML in Sterile Water 9.6 ML SLOW IVP SCH (16:55)
--- NOTE | 2017-12-24 17:35 | RAD ---
PORTABLE AP CHEST X-RAY 12/24/17 HISTORY: Post Mediport placement. COMPARISON: 12/22/17. FINDINGS: There has been interval placement of a right internal jugular vein Mediport catheter with tip overlyi ng the distal SVC. The left upper lobe mass is again seen. There is a patchy air space opacity seen i n the right mid lung zone. This appears in different position when compared to the recent study on 12/22/17 and may be related to developing pneumonia/pneumonitis in this region. The air space opacity fur ther superiorly in the right upper lung zone has improved. There is no evidence of a pneumothorax and no obvious pleural effusions seen. The cardiac silhouette and pulmonary vasculature are within malachi l limits. IMPRESSION: 1. Interval placement of a right internal jugular vein Mediport catheter without evidence of a p neumothorax. 2. Left upper lobe mass stable from prior exam. 3. Air space opacity right mid lung zone which may represent an infectious or inflammatory proce ss. Continued followup is recommended. 4. Air space opacity in the more superior aspect right upper lung zone noted on the prior exam i s less well delineated on the current study. 5. Stable mild hilar prominence similar to prior exam. POS: [facility]
--- NOTE | 2017-12-24 19:13 | OP ---
DATE OF PROCEDURE: 12/24/2017 PREOPERATIVE DIAGNOSES: Sarcoma, venous insufficiency. POSTOPERATIVE DIAGNOSES: Sarcoma, venous insufficiency. PROCEDURE: Total central line subcutaneous port (MediPort low profile, CT injectable). SURGEON: Uziel Hunter M.D. ANESTHESIA: General. ESTIMATED BLOOD LOSS: Minimal. COMPLICATIONS: None. SPECIMEN: None. FINDINGS: Tip of the catheter is at the atriocaval junction. PROCEDURE IN DETAIL: The patient was taken to the operating room and placed supine on the table. Af ter general anesthetic was obtained, his bilateral neck and chest was prepped and draped in a sterile fashion. Local anesthetic infiltrated over the right internal jugular vein. Intrajugular vein benito ulated using a 22-gauge finder needle followed by a Seldinger needle. Wire was passed into the super ior vena cava under fluoroscopic guidance. A small samir was made at the wire entrance site. A separ ate 3-cm incision made at the right upper chest. Subcutaneous pocket made below the lower incision. Tubing for the MediPort tunneled from the inferior to superior incision. A suture sheath was placed over the wire into the superior vena cava under fluoroscopic guidance. A dilator and wire removed a nd the catheter threaded into the sheath as the sheath is peeled away the tip of the catheter is at t he atrial caval junction. The MediPort tubing is cut to fit the MediPort at the lower incision, conn ected to the MediPort which is sewn into the chest wall in the subcutaneous pocket using Prolene sutu re. The MediPort flushes and draws blood without difficulty. Incision is closed using 3-0 Vicryl, 4 -0 Monocryl, and Dermabond. The patient was en route to recovery in stable condition. All instrumen t counts, needle counts, lap counts were correct.
[2017-12-24] MEDS: Morphine 4 MG/ML VIAL SLOW IVP PRN (19:50)
[2017-12-25] MEDS: Morphine 4 MG/ML VIAL SLOW IVP PRN (00:10)
--- NOTE | 2017-12-25 01:41 | PDOC.EVN ---
Event Note - Event Note Event Note: RN called - Pt has urinary retention. Will try Flomax. ?[place] if no response.
[2017-12-25] MEDS ORDERED: Tamsulosin HCl 0.4 MG CAP PO SCH ×2 (01:45→21:00)
[2017-12-25] MEDS: Furosemide 20 MG/2 ML VIAL SLOW IVP SCH ×2 (05:54→15:27)
[2017-12-25 06:35] LABS: #Lymphocytes 0.7 thou/uL (1.20-3.40); #Monocytes 0.2 thou/uL (0.11-0.59); #Neutrophils 0.7 thou/uL (1.40-6.50); %Eosinophils 1.1 % (0.0-10.0); %Lymphocytes 45.8 % (21.0-51.0); %Monocytes 9.6 % (0.0-10.0); %Neutrophils 42.5 % (42.0-75.0); Hemoglobin 8.3 g/dL (14.0-18.0); Mean Corpuscular HGB CONC 32.7 g/dL (32.0-36.0); Mean Corpuscular Hemoglobin 37.3 pg (27.0-31.0); Mean Platelet Volume 9.4 fL (7.4-10.4); Platelet Count 40 thou/uL (130-400); RBC Distribution Width 15.5 % (11.5-14.5); Red Blood Cell (RBC) Count 2.22 mill/uL (4.70-6.10); White Blood Cell (WBC) Count 1.6 thou/uL (4.8-10.8)
[2017-12-25 07:03] LABS: Albumin 2.1 g/dL (3.4-4.8); Anion Gap 9 mmol/L (10-20); BUN (Urea Nitrogen) 12 mg/dL (8.4-25.7); BUN/Creatinine Ratio 23.08; Calc. Creatinine Clearance 187 mL/min (70-130); Calcium 7.5 mg/dL (7.8-10.44); Carbon Dioxide 30 mmol/L (23-31); Chloride 97 mmol/L (98-107); Estimated GFR-MDRD Greater than 90; Glucose 87 mg/dL (83-110); Phosphorus 1.8 mg/dL (2.3-4.7); Potassium 3.9 mmol/L (3.5-5.1); Sodium 132 mmol/L (136-145)
[2017-12-25] MEDS ORDERED: Potassium Phosphate 15 MMOL in Sodium Chloride 0.9% 250 ML 250 ML IVPB SCH (07:30)
[2017-12-25] MEDS: Cyanocobalamin (Vitamin B-12) 1,000 MCG TAB PO SCH (08:40)
[2017-12-25] MEDS: Famotidine 20 MG TAB PO SCH ×2 (08:40→20:09)
[2017-12-25] MEDS: Folic Acid 1 MG TAB PO SCH (08:40)
[2017-12-25] MEDS: Potassium Chloride 20 MEQ TAB PO SCH ×2 (08:40→17:37)
[2017-12-25] MEDS ORDERED: Furosemide 40 MG/4 ML VIAL ONE (09:46)
--- NOTE | 2017-12-25 10:18 | PDOC.GSPN ---
Surgery Progress Note: Subj - Subjective Patient reports: no new complaints Surgery Progress Note: Obj - Vital signs Vital signs: Vital Signs - Most Recent Temp Pulse Resp BP Pulse Ox 97.9 F 92 18 113/57 L 98 12/25/17 08:00 12/25/17 08:00 12/25/17 08:00 12/25/17 07:45 12/25/17 08:00 - Physical Exam General: no distress Wound: dressing clean,dry,intact Surgery Progress Note: Results - Labs Result Diagrams: 12/25/17 06:21 12/25/17 06:21 Lab results: Laboratory Results - last 24 hr 12/25/17 12/25/17 06:21 06:21 WBC 1.6 L RBC 2.22 L Hgb 8.3 L Hct 25.2 L MCV 114.0 H MCH 37.3 H MCHC 32.7 RDW 15.5 H Plt Count 40 L MPV 9.4 Neutrophils % 42.5 Neutrophils % (Manual) Not Reportable Lymphocytes % 45.8 Monocytes % 9.6 Eosinophils % 1.1 Basophils % 1.0 Neutrophils # 0.7 L Lymphocytes # 0.7 L Monocytes # 0.2 Eosinophils # 0.0 Basophils # 0.0 Sodium 132 L Potassium 3.9 Chloride 97 L Carbon Dioxide 30 Anion Gap 9 L BUN 12 Creatinine 0.52 L Estimated GFR (MDRD) Greater than 90 BUN/Creatinine Ratio 23.08 Glucose 87 Calcium 7.5 L Phosphorus 1.8 L Albumin 2.1 L Surgery Progress Note: A/P - Problem (1) Metastatic sarcoma Current Visit: Yes Code(s): C79.89 - SECONDARY MALIGNANT NEOPLASM OF OTHER SPECIFIED SITES Status: Chronic - Plan Plan: Doing well postop mediport
--- NOTE | 2017-12-25 10:40 | PDOC.PN ---
- Subjective Encounter Start Date: 12/25/17 Encounter Start Time: 09:15 Patient seen and examined. No new complaints. No overnight events - Objective Resuscitation Status: Resuscitation Status FULL:Full Resuscitation MAR Reviewed: Yes Vital Signs & Weight: Vital Signs (12 hours) Temp Pulse Resp BP BP Pulse Ox 12/25/17 08:00 97.9 F 92 18 98 12/25/17 07:45 97.9 F 92 18 113/57 L 98 12/25/17 04:00 98.3 F 88 20 93/50 L 94 L 12/25/17 00:40 20 93 L 12/25/17 00:00 98.9 F 97 20 113/56 L 89 L Weight Admit Weight 268 lb 6.4 oz Weight 223 lb 12.8 oz I&O: 12/24/17 12/25/17 12/26/17 06:59 06:59 06:59 Intake Total 1650 60 Output Total 1050 600 Balance 600 -540 Result Diagrams: 12/25/17 06:21 12/25/17 06:21 Phys Exam - Physical Examination Constitutional: NAD HEENT: PERRLA, moist MMs, sclera anicteric Neck: no JVD, supple Respiratory: no wheezing, no rales, no rhonchi mediport in place Cardiovascular: RRR, no significant murmur, no rub Gastrointestinal: soft, non-tender, no distention, positive bowel sounds Musculoskeletal: pulses present, edema present Neurological: non-focal, normal sensation Lymphatic: no nodes Psychiatric: normal affect Skin: no rash, normal turgor Dx/Plan (1) Abnormal blood electrolyte level Code(s): E87.8 - OTH DISORDERS OF ELECTROLYTE AND FLUID BALANCE, NEC Status: Acute Comment: hyponatremia, hypokalemia, hypophosphatemia and hypomagnesemia electrolytes replaced (2) Anasarca Code(s): R60.1 - GENERALIZED EDEMA Status: Acute Comment: due to low albumin (3) Elevated troponin Code(s): R74.8 - ABNORMAL LEVELS OF OTHER SERUM ENZYMES Status: Acute Comment: due to demand ischemia (4) Hypoalbuminemia Code(s): E88.09 - OTH DISORDERS OF PLASMA-PROTEIN METABOLISM, NEC Status: Acute (5) Intractable pain Code(s): R52 - PAIN, UNSPECIFIED Status: Acute Comment: due to cancer and chemotherapy related pain (6) Lactic acidosis Code(s): E87.2 - ACIDOSIS Status: Acute (7) Pancytopenia due to antineoplastic chemotherapy Code(s): D61.810 - ANTINEOPLASTIC CHEMOTHERAPY INDUCED PANCYTOPENIA; T45.1X5A - ADVERSE EFFECT OF ANTINEOPLASTIC AND IMMUNOSUP DRUGS, INIT Status: Acute (8) Thrombocytopenia Code(s): D69.6 - THROMBOCYTOPENIA, UNSPECIFIED Status: Acute (9) Alcohol abuse Code(s): F10.10 - ALCOHOL ABUSE, UNCOMPLICATED Status: Chronic (10) Cholelithiases Code(s): K80.20 - CALCULUS OF GALLBLADDER W/O CHOLECYSTITIS W/O OBSTRUCTION Status: Chronic Qualifiers: Cholelithiasis location: gallbladder Cholecystitis acuity: chronic Biliary obstruction: without biliary obstruction (11) HTN (hypertension) Code(s): I10 - ESSENTIAL (PRIMARY) HYPERTENSION Status: Chronic (12) Macrocytic anemia Code(s): D53.9 - NUTRITIONAL ANEMIA, UNSPECIFIED Status: Chronic (13) Metastatic sarcoma Code(s): C79.89 - SECONDARY MALIGNANT NEOPLASM OF OTHER SPECIFIED SITES Status : Chronic Comment: mets to lung and adrenal (14) Right flank mass Code(s): R19.00 - INTRA-ABD AND PELVIC SWELLING, MASS AND LUMP, UNSP SITE Status: Chronic Comment: soft tissue sarcoma (15) DVT of popliteal vein Code(s): I82.439 - ACUTE EMBOLISM AND THROMBOSIS OF UNSPECIFIED POPLITEAL VEIN Status: Acute Qualifiers: Chronicity: acute Laterality: right Qualified Code(s): I82.431 - Acute embolism and thrombosis of right popliteal vein (16) S/P insertion of IVC (inferior vena caval) filter Status: Acute (17) Urinary retention Code(s): R33.9 - RETENTION OF URINE, UNSPECIFIED Status: Acute (18) Physical deconditioning Code(s): R53.81 - OTHER MALAISE Status: Acute - Plan cont current plan of care, continue antibiotics * mediport placed, ivc filter inserted * replace potassium phosphate * will need rehab * medication reviewed as below * symptomatic treatment * continue lasix * prognosis is guarded * high risk for readmission. * DC antibiotics * continue flomax Review of Systems - Review of Systems Constitutional: weakness Eyes: negative: Pain, Vision Change, Conjunctivae Inflammation, Eyelid Inflammation, Redness, Other ENT: negative: Ear Pain, Ear Discharge, Nose Pain, Nose Discharge, Nose Congestion, Mouth Pain, Mouth Swelling, Throat Pain, Throat Swelling, Other Respiratory: negative: Cough, Dry, Shortness of Breath, Hemoptysis, SOB with Excertion, Pleuritic Pain, Sputum, Wheezing Cardiovascular: edema. negative: chest pain, palpitations, orthopnea, paroxysmal nocturnal dyspnea, light headedness, other Gastrointestinal: negative: Nausea, Vomiting, Abdominal Pain, Diarrhea, Constipation, Melena, Hematochezia, Other Genitourinary: negative: Dysuria, Frequency, Incontinence, Hematuria, Retention , Other Musculoskeletal: negative: Neck Pain, Shoulder Pain, Arm Pain, Back Pain, Hand Pain, Leg Pain, Foot Pain, Other Skin: negative: Rash, Lesions, Slava, Bruising, Other - Medications/Allergies Allergies/Adverse Reactions: Allergies Allergy/AdvReac Type Severity Reaction Status Date / Time No Known Drug Allergies Allergy Verified 05/11/17 21:29 Medications: Current Medications Acetaminophen (Tylenol) 650 mg PO Q4H PRN PRN Reason: Headache/Fever or Pain Hydrocodone Bitart/Acetaminophen ([place] 10/325) 1 tab PO Q4H PRN PRN Reason: Pain >3 Al Hydroxide/Mg Hydroxide (Maalox) 30 ml PO Q6H PRN PRN Reason: Heartburn or Indigestion Artificial Tears (Tears Naturale) 0 drop EA EYE PRN PRN PRN Reason: Dry Eyes Aspirin (Aspirin Chewable) 81 mg PO DAILY [facility] Last Admin: 12/25/17 08:40 Dose: 81 mg Cyanocobalamin (Vitamin B-12) 1,000 mcg PO DAILY [facility] Last Admin: 12/25/17 08:40 Dose: 1,000 mcg Famotidine (Pepcid) 20 mg PO BID [facility] Last Admin: 12/25/17 08:40 Dose: 20 mg Folic Acid (Folvite) 1 mg PO DAILY [facility] Last Admin: 12/25/17 08:40 Dose: 1 mg Furosemide (Lasix) 20 mg SLOW IVP 0600,1400 [facility] Last Admin: 12/25/17 05:54 Dose: Not Given Guaifenesin (Robitussin Sf) 200 mg PO Q4H PRN PRN Reason: Cough Hydralazine HCl (Apresoline) 10 mg SLOW IVP Q4H PRN PRN Reason: Systolic BP > 180 Ceftriaxone Sodium 1 gm/ (Syringe 0.4 ml/ Sterile Water) 10 mls @ 120 mls/hr SLOW IVP 1700 DAINA Last Admin: 12/24/17 16:55 Dose: 10 mls Potassium Phosphate 15 mmol/ (Sodium Chloride) 255 mls @ 62.5 mls/hr IVPB 0730 [facility] Stop: 12/25/17 11:35 Last Admin: 12/25/17 08:27 Dose: 255 mls Loperamide HCl (Imodium) 2 mg PO PRN PRN PRN Reason: Diarrhea/Loose Stools Loratadine (Claritin) 10 mg PO DAILYPRN PRN PRN Reason: Sinus Symptoms Magnesium Hydroxide (Milk Of Magnesium) 30 ml PO DAILYPRN PRN PRN Reason: Constipation Mineral Oil/White Petrolatum (Eucerin Cream) 0 gm TOP BIDPRN PRN PRN Reason: Dry Skin Morphine Sulfate (Morphine) 4 mg SLOW IVP Q3H PRN PRN Reason: Severe Pain (7-10) Last Admin: 12/25/17 00:10 Dose: 4 mg Ondansetron HCl (Zofran Odt) 4 mg PO Q6H PRN PRN Reason: Nausea/Vomiting Ondansetron HCl (Zofran) 4 mg IVP Q6H PRN PRN Reason: Nausea/Vomiting Last Admin: 12/23/17 13:46 Dose: 4 mg Phenol (Chloraseptic [place] 180 Ml Bot) 0 ml PO PRN PRN PRN Reason: Sore Throat Potassium Chloride (K-Dur) 20 meq PO BID-[facility] Last Admin: 12/25/17 08:40 Dose: 20 meq Senna (Senokot) 2 tab PO HSPRN PRN PRN Reason: Constipation Sodium Chloride ([place] Nasal [place] 0.65%) 0 ml EA NARE QIDPRN PRN PRN Reason: Nasal Congestion Sodium Chloride (Flush - Normal Saline) 10 ml IVF Q12HR [facility] Last Admin: 12/25/17 08:41 Dose: 10 ml Sodium Chloride (Flush - Normal Saline) 10 ml IVF PRN PRN PRN Reason: Saline Flush Last Admin: 12/25/17 05:54 Dose: 10 ml Tamsulosin HCl (Flomax) 0.4 mg PO [facility] Zolpidem Tartrate (Ambien) 5 mg PO HSPRN PRN PRN Reason: Insomnia
[2017-12-25] MEDS: HYDROcodone/Acetaminophen 10/325 mg Tablet PO PRN ×2 (12:03→17:37)
[2017-12-25] MEDS: Albumin 25% 25 GM/100 ML BOT IVPB SCH (13:16)
--- NOTE | 2017-12-25 19:59 | EKG ---
Test Reason : Blood Pressure : / mmHG Vent. Rate : 092 BPM Atrial Rate : 092 BPM P-R Int : 164 ms QRS Dur : 088 ms QT Int : 428 ms P-R-T Axes : 055 -14 097 degrees QTc Int : 529 ms Normal sinus rhythm Low voltage QRS Possible Inferior infarct , age undetermined Cannot rule out Anterior infarct , age undetermined Prolonged QT Abnormal ECG Confirmed by REGAN CLEMENT ([id number]), website/blog editor BINH EVERETT ([id number]) on 12/25/2017 7:59:21 PM Referred By: Confirmed By:REGAN CLEMENT
[2017-12-25] MEDS ORDERED: Furosemide 20 MG/2 ML VIAL SLOW IVP SCH (21:15)
[2017-12-26] MEDS: Morphine 4 MG/ML VIAL SLOW IVP PRN ×3 (02:06→15:49)
[2017-12-26] MEDS: Ondansetron HCl/PF 4 MG/2 ML Vial IVP PRN ×2 (02:11→09:48)
[2017-12-26] MEDS: Furosemide 20 MG/2 ML VIAL SLOW IVP SCH ×2 (05:59→13:50)
[2017-12-26] MEDS ORDERED: Metolazone 5 MG TAB PO SCH (08:30)
[2017-12-26] MEDS ORDERED: Magnesium Oxide 400 MG TAB PO SCH (09:00)
[2017-12-26] MEDS: Folic Acid 1 MG TAB PO SCH (09:07)
[2017-12-26] MEDS: Cyanocobalamin (Vitamin B-12) 1,000 MCG TAB PO SCH (09:07)
[2017-12-26] MEDS: Potassium Chloride 20 MEQ TAB PO SCH (09:08)
[2017-12-26] MEDS: Famotidine 20 MG TAB PO SCH (09:08)
--- NOTE | 2017-12-26 09:54 | PDOC.PN ---
- Subjective Encounter Start Date: 12/26/17 Encounter Start Time: 06:50 Patient seen and examined. No new complaints. No overnight events - Objective Resuscitation Status: Resuscitation Status DNR:Do Not Resuscitate MAR Reviewed: Yes Vital Signs & Weight: Vital Signs (12 hours) Temp Pulse Resp BP BP Pulse Ox 12/26/17 08:00 97.9 F 91 18 94 L 12/26/17 07:56 97.9 F 91 18 123/60 94 L 12/26/17 00:00 98.1 F 89 18 122/63 93 L Weight Admit Weight 268 lb 6.4 oz Weight 223 lb 12.8 oz I&O: 12/25/17 12/26/17 12/27/17 06:59 06:59 06:59 Intake Total 60 1110 Output Total 600 1625 Balance -540 -515 Result Diagrams: 12/25/17 06:21 12/25/17 06:21 Phys Exam - Physical Examination Constitutional: NAD HEENT: PERRLA, moist MMs, sclera anicteric Neck: no JVD, supple Respiratory: no wheezing, no rales, no rhonchi Cardiovascular: RRR, no significant murmur, no rub Gastrointestinal: soft, non-tender, no distention, positive bowel sounds Musculoskeletal: pulses present, edema present Neurological: non-focal, normal sensation Lymphatic: no nodes Psychiatric: normal affect, A&O x 3 Skin: no rash, normal turgor Dx/Plan (1) Abnormal blood electrolyte level Code(s): E87.8 - OTH DISORDERS OF ELECTROLYTE AND FLUID BALANCE, NEC Status: Acute Comment: hyponatremia, hypokalemia, hypophosphatemia and hypomagnesemia electrolytes replaced (2) Anasarca Code(s): R60.1 - GENERALIZED EDEMA Status: Acute Comment: due to low albumin (3) Elevated troponin Code(s): R74.8 - ABNORMAL LEVELS OF OTHER SERUM ENZYMES Status: Acute Comment: due to demand ischemia (4) Hypoalbuminemia Code(s): E88.09 - OTH DISORDERS OF PLASMA-PROTEIN METABOLISM, NEC Status: Acute (5) Intractable pain Code(s): R52 - PAIN, UNSPECIFIED Status: Acute Comment: due to cancer and chemotherapy related pain (6) Lactic acidosis Code(s): E87.2 - ACIDOSIS Status: Acute (7) Pancytopenia due to antineoplastic chemotherapy Code(s): D61.810 - ANTINEOPLASTIC CHEMOTHERAPY INDUCED PANCYTOPENIA; T45.1X5A - ADVERSE EFFECT OF ANTINEOPLASTIC AND IMMUNOSUP DRUGS, INIT Status: Acute (8) Thrombocytopenia Code(s): D69.6 - THROMBOCYTOPENIA, UNSPECIFIED Status: Acute (9) Alcohol abuse Code(s): F10.10 - ALCOHOL ABUSE, UNCOMPLICATED Status: Chronic (10) Cholelithiases Code(s): K80.20 - CALCULUS OF GALLBLADDER W/O CHOLECYSTITIS W/O OBSTRUCTION Status: Chronic Qualifiers: Cholelithiasis location: gallbladder Cholecystitis acuity: chronic Biliary obstruction: without biliary obstruction (11) HTN (hypertension) Code(s): I10 - ESSENTIAL (PRIMARY) HYPERTENSION Status: Chronic (12) Macrocytic anemia Code(s): D53.9 - NUTRITIONAL ANEMIA, UNSPECIFIED Status: Chronic (13) Metastatic sarcoma Code(s): C79.89 - SECONDARY MALIGNANT NEOPLASM OF OTHER SPECIFIED SITES Status : Chronic Comment: mets to lung and adrenal (14) Right flank mass Code(s): R19.00 - INTRA-ABD AND PELVIC SWELLING, MASS AND LUMP, UNSP SITE Status: Chronic Comment: soft tissue sarcoma (15) DVT of popliteal vein Code(s): I82.439 - ACUTE EMBOLISM AND THROMBOSIS OF UNSPECIFIED POPLITEAL VEIN Status: Acute Qualifiers: Chronicity: acute Laterality: right Qualified Code(s): I82.431 - Acute embolism and thrombosis of right popliteal vein (16) S/P insertion of IVC (inferior vena caval) filter Status: Acute (17) Urinary retention Code(s): R33.9 - RETENTION OF URINE, UNSPECIFIED Status: Acute (18) Physical deconditioning Code(s): R53.81 - OTHER MALAISE Status: Acute - Plan cont current plan of care, PT/OT, social services aide * medication reviewed as below * symptomatic treatment * will need rehab placement * replace electrolytes as needed. * pain controlled Review of Systems - Review of Systems Constitutional: weakness. negative: fever, chills, sweats, malaise, other ENT: negative: Ear Pain, Ear Discharge, Nose Pain, Nose Discharge, Nose Congestion, Mouth Pain, Mouth Swelling, Throat Pain, Throat Swelling, Other Respiratory: negative: Cough, Dry, Shortness of Breath, Hemoptysis, SOB with Excertion, Pleuritic Pain, Sputum, Wheezing Cardiovascular: negative: chest pain, palpitations, orthopnea, paroxysmal nocturnal dyspnea, edema, light headedness, other Gastrointestinal: negative: Nausea, Vomiting, Abdominal Pain, Diarrhea, Constipation, Melena, Hematochezia, Other Genitourinary: negative: Dysuria, Frequency, Incontinence, Hematuria, Retention , Other Musculoskeletal: negative: Neck Pain, Shoulder Pain, Arm Pain, Back Pain, Hand Pain, Leg Pain, Foot Pain, Other - Medications/Allergies Allergies/Adverse Reactions: Allergies Allergy/AdvReac Type Severity Reaction Status Date / Time No Known Drug Allergies Allergy Verified 05/11/17 21:29 Medications: Current Medications Acetaminophen (Tylenol) 650 mg PO Q4H PRN PRN Reason: Headache/Fever or Pain Hydrocodone Bitart/Acetaminophen ([place] 10/325) 1 tab PO Q4H PRN PRN Reason: Pain >3 Last Admin: 12/25/17 17:37 Dose: 1 tab Al Hydroxide/Mg Hydroxide (Maalox) 30 ml PO Q6H PRN PRN Reason: Heartburn or Indigestion Artificial Tears (Tears Naturale) 0 drop EA EYE PRN PRN PRN Reason: Dry Eyes Aspirin (Aspirin Chewable) 81 mg PO DAILY [facility] Last Admin: 12/26/17 09:07 Dose: 81 mg Cyanocobalamin (Vitamin B-12) 1,000 mcg PO DAILY [facility] Last Admin: 12/26/17 09:07 Dose: 1,000 mcg Famotidine (Pepcid) 20 mg PO BID [facility] Last Admin: 12/26/17 09:08 Dose: 20 mg Folic Acid (Folvite) 1 mg PO DAILY [facility] Last Admin: 12/26/17 09:07 Dose: 1 mg Furosemide (Lasix) 20 mg SLOW IVP 0600,1400 [facility] Last Admin: 12/26/17 05:59 Dose: 20 mg Guaifenesin (Robitussin Sf) 200 mg PO Q4H PRN PRN Reason: Cough Hydralazine HCl (Apresoline) 10 mg SLOW IVP Q4H PRN PRN Reason: Systolic BP > 180 Loperamide HCl (Imodium) 2 mg PO PRN PRN PRN Reason: Diarrhea/Loose Stools Loratadine (Claritin) 10 mg PO DAILYPRN PRN PRN Reason: Sinus Symptoms Magnesium Hydroxide (Milk Of Magnesium) 30 ml PO DAILYPRN PRN PRN Reason: Constipation Magnesium Oxide (Magnesium Oxide) 400 mg PO DAILY [facility] Last Admin: 12/26/17 09:07 Dose: 400 mg Metolazone (Zaroxolyn) 5 mg PO 08 [facility] Last Admin: 12/26/17 09:07 Dose: 5 mg Mineral Oil/White Petrolatum (Eucerin Cream) 0 gm TOP BIDPRN PRN PRN Reason: Dry Skin Morphine Sulfate (Morphine) 4 mg SLOW IVP Q3H PRN PRN Reason: Severe Pain (7-10) Last Admin: 12/26/17 02:06 Dose: 4 mg Ondansetron HCl (Zofran Odt) 4 mg PO Q6H PRN PRN Reason: Nausea/Vomiting Ondansetron HCl (Zofran) 4 mg IVP Q6H PRN PRN Reason: Nausea/Vomiting Last Admin: 12/26/17 09:48 Dose: 4 mg Phenol (Chloraseptic [place] 180 Ml Bot) 0 ml PO PRN PRN PRN Reason: Sore Throat Potassium Chloride (K-Dur) 20 meq PO BID-[facility] Last Admin: 12/26/17 09:08 Dose: 20 meq Senna (Senokot) 2 tab PO HSPRN PRN PRN Reason: Constipation Last Admin: 12/25/17 21:24 Dose: 2 tab Sodium Chloride ([place] Nasal [place] 0.65%) 0 ml EA NARE QIDPRN PRN PRN Reason: Nasal Congestion Sodium Chloride (Flush - Normal Saline) 10 ml IVF Q12HR [facility] Last Admin: 12/26/17 09:48 Dose: 10 ml Sodium Chloride (Flush - Normal Saline) 10 ml IVF PRN PRN PRN Reason: Saline Flush Last Admin: 12/26/17 05:59 Dose: 10 ml Tamsulosin HCl (Flomax) 0.4 mg PO HS [facility] Last Admin: 12/25/17 20:09 Dose: 0.4 mg Zolpidem Tartrate (Ambien) 5 mg PO HSPRN PRN PRN Reason: Insomnia
[2017-12-26 12:13] VITALS: BP 123/62; TEMP 98.6
--- NOTE | 2017-12-26 13:50 | DIS ---
PRIMARY CARE PHYSICIAN: Dr. Evita Ramírez. DATE OF ADMISSION: 12/22/2017 DATE OF DISCHARGE: 12/26/2017 DISCHARGE DISPOSITION: Rehabilitation. PRIMARY DISCHARGE DIAGNOSES: 1. Anasarca due to hypoalbuminemia. 2. Abnormal blood electrolyte level, acute deep venous thrombosis of popliteal vein, demand ischemia of myocardium, intractable cancer pain, lactic acidosis, status post insertion of IVC filter, status post MediPort placement, urinary retention, thrombocytopenia. 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 PRIMARY PROCEDURE/OPERATION: MediPort placement, IVC filter placement. RADIOLOGICAL INVESTIGATION: Chest x-ray is unremarkable. Ultrasound was positive for DVT of right p opliteal vein. SIGNIFICANT LABS: Hemoglobin 8.3, platelets 40. WBC 1.6. INR 1.3, creatinine 0.52. Sodium 132, po tassium 3.9, phosphorus 1.8, magnesium 1.9, albumin 2.1, troponin 0.140. Blood culture negative. Ur ine culture negative. DISCHARGE MEDICATIONS: Vitamin B12 1000 mcg p.o. daily, Pepcid 20 mg p.o. b.i.d., folic acid 1 mg p. o. daily, Lasix 40 mg p.o. daily, [place] 5 one tablet q.6 hourly p.r.n., magnesium oxide 400 mg p.o. d aily, potassium chloride 20 mEq p.o. daily, Flomax 0.4 mg p.o. at bedtime. CONTRAINDICATIONS: None. CODE STATUS: DNR. INPATIENT CONSULTANTS: Oncology was following while in hospital. Dr. Roland Richey consulted for IV C filter. Dr. Hunter was consulted for MediPort placement. TEST RESULTS PENDING ON DISCHARGE: None. ALLERGIES: No known drug allergy. DISCHARGE PLAN: Post hospital, the patient is planned for discharge to rehabilitation. Subsequently , patient will follow up with Oncology as instructed. HOSPITAL COURSE: A 73-year-old male who has metastatic soft tissue sarcoma. He was having intractab le pain from cancer. He was getting gemcitabine for chemotherapy. The patient also had pancytopenia and severe thrombocytopenia. He had macrocytic anemia as well. He had anasarca with lower extremit y pitting edema. He has albumin low and he had elevated troponin. He was admitted to Oncology floor . During this admission, we empirically started Rocephin because of lactic acidosis, but once cultur e was negative, we discontinue antibiotic therapy and he remained afebrile while in hospital and his lactic acidosis resolved. He had abnormal electrolytes that was corrected while in hospital. His an asarca was treated with IV Lasix and we also supplemented with albumin infusion during hospital cours e. He had elevated troponin, which was demand ischemia related. He did not have any cardiac symptom s. We did ultrasound of the lower extremity and that was positive for DVT, but he was not a candidat e for chronic anticoagulation therapy, that is why we consulted Dr. Roland Richey for IVC filter, whi ch was done during this admission. The patient also had a MediPort placed during this admission for chemotherapy access. He has significant physical deconditioning and the patient and family member wanted to send him to a rehab and with help of trimming caser, we arranged rehab upon discharge. Over during the hospital, we also discussed code status and the patient was made DNR. Paperwork for discharge done. Discharge medication reconciliation done. The patient is approved for inpatient rehabilitation. The patient is medically stable for discharge to rehabilitation as well.
== END 2017-12-26 16:02 | DRG 939 ==
LOC: ERS 10:57 → ONC 13:58 → OBSVTOIN 13:58 → UNDOADMOB 14:01 → ONC 14:01
PROVIDERS: ADMIT Internal Medicine; ATTEND Internal Medicine
PROC: 06H03DZ Insertion of Intraluminal Device into Inferior Vena Cava, Percutaneous Approach (ICD-10-PCS; principal; 2017-12-24)
PROC: 30233R1 Transfusion of Nonautologous Platelets into Peripheral Vein, Percutaneous Approach (ICD-10-PCS; 2017-12-24)
PROC: 02HV33Z Insertion of Infusion Device into Superior Vena Cava, Percutaneous Approach (ICD-10-PCS; 2017-12-24)
DX: G89.3 Neoplasm related pain (acute) (chronic) (principal); D61.810 Antineoplastic chemotherapy induced pancytopenia; I82.431 Acute embolism and thrombosis of right popliteal vein; E46 Unspecified protein-calorie malnutrition; R18.0 Malignant ascites; J91.0 Malignant pleural effusion; E87.2 Acidosis; C78.00 Secondary malignant neoplasm of unspecified lung; C79.70 Secondary malignant neoplasm of unspecified adrenal gland; E87.1 Hypo-osmolality and hyponatremia; I24.8 Other forms of acute ischemic heart disease; C79.51 Secondary malignant neoplasm of bone; C49.4 Malignant neoplasm of connective and soft tissue of abdomen; I37.1 Nonrheumatic pulmonary valve insufficiency; E83.39 Other disorders of phosphorus metabolism; Z66 Do not resuscitate; D69.6 Thrombocytopenia, unspecified; E83.42 Hypomagnesemia; E87.8 Other disorders of electrolyte and fluid balance, not elsewhere classified; E88.09 Other disorders of plasma-protein metabolism, not elsewhere classified; E87.6 Hypokalemia; R74.8 Abnormal levels of other serum enzymes; T45.1X5A Adverse effect of antineoplastic and immunosuppressive drugs, initial encounter; F10.10 Alcohol abuse, uncomplicated; K80.20 Calculus of gallbladder without cholecystitis without obstruction; I10 Essential (primary) hypertension; D53.9 Nutritional anemia, unspecified; R33.9 Retention of urine, unspecified; E86.0 Dehydration; I27.20 Pulmonary hypertension, unspecified; I07.1 Rheumatic tricuspid insufficiency; I87.2 Venous insufficiency (chronic) (peripheral)
CPT/HCPCS: 36415; 36430; 37191; 71045; 76942; 80053; 80069; 82553; 83605; 83735; 84100; 84484; 84550; 85025; 85610; 85730; 86850; 86900; 86901; 87040; 87086; 90471; 90670; 93005; 93970; 96361; 96374; 96376; A4216; C1769; C1788; G0009; G8978-GP-CM; G8979-GP-CK; G8987-GO-CL; G8988-GO-CJ; J0696; J1642; J1644; J1940; J2001; J2250; J2270; J2405; J2704; J3010; J3475; J7050; P9035; P9047; Q0162